=== PATIENT | male | born 1930 | race Caucasian/White ===

== ENCOUNTER 2016-10-05 10:50 | Observation (INO) | payer MEDICARE ==
--- NOTE | 2016-10-05 11:19 | C.PDOC ---
History Of Present Illness 85 y/o male, with history of open heart surgery and 7 stents, presents to ED with c/o acute onset left sided chest pain, described as pressure, radiating down left arm, that started this morning. Patient also reports some associated shortness of breath with exertion. Notes he took aspirin 325mg x 2 this morning. Denies fever, chills, nausea, vomiting, or other associated symptoms. 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 Time Seen by Provider: 10/05/16 10:53 Chief Complaint (Nursing): Chest Pain History Per: Patient History/Exam Limitations: no limitations Onset/Duration Of Symptoms: Hrs Current Symptoms Are (Timing): Still Present Quality: Pressure Associated Symptoms: Other (SOB) Recent travel outside of the [place]: No Past Medical History Reviewed: Historical Data, Nursing Documentation, Vital Signs Vital Signs: Last Vital Signs Temp 98.8 F 10/05/16 10:55 Pulse 87 10/05/16 11:46 Resp 20 10/05/16 10:55 BP 106/60 10/05/16 11:46 Pulse Ox 98 10/05/16 10:55 - Medical History PMH: HTN Family History: States: Unknown Family Hx - Social History Hx Tobacco Use: No Hx Alcohol Use: No Hx Substance Use: No - Immunization History Hx Influenza Vaccination: Yes Hx Pneumococcal Vaccination: Yes Review Of Systems Except As Marked, All Systems Reviewed And Found Negative. Constitutional: Negative for: Fever, Chills ENT: Negative for: Ear Pain Cardiovascular: Positive for: Chest Pain. Negative for: Palpitations Respiratory: Positive for: SOB with Excertion. Negative for: Cough, Wheezing Gastrointestinal: Negative for: Nausea, Vomiting Genitourinary: Negative for: Dysuria Skin: Negative for: Rash Neurological: Negative for: Weakness, Numbness, Seizures, Altered Mental Status , Headache, Dizziness Physical Exam - Physical Exam Appears: Well, Non-toxic, No Acute Distress Skin: Normal Color, Warm, Dry Head: Atraumatic, Normacephalic Eye(s): bilateral: Normal Inspection, PERRL, EOMI Oral Mucosa: Moist Neck: Supple Chest: Symmetrical Cardiovascular: Rhythm Regular Respiratory: Normal Breath Sounds, No Accessory Muscle Use, No Rales, No Rhonchi , No Wheezing Gastrointestinal/Abdominal: Soft, No Tenderness, No Guarding, No Rebound Back: Normal Inspection Extremity: Normal ROM, No Pedal Edema, No Calf Tenderness, Capillary Refill (< 2 sec.) Neurological/Psych: Oriented x3, Normal Speech, Normal Cognition ED Course And Treatment - Laboratory Results Result Diagrams: 10/05/16 11:45 10/05/16 11:45 Medical Decision Making Medical Decision Making: EKG shows NSR at 75bpm with normal intervals and no ST changes. Cxray shows biapical thickening and cardiomegaly. Trop and bnp negative. Spoke to Jamir and will transfer to tele observation due to known CAD and chest pain with no cardiac follow-up. y Disposition - Disposition Disposition: HOSPITALIZED Disposition Time: 11:02 Condition: FAIR - Clinical Impression Clinical Impression: Chest pain - Scribe Statement The provider has reviewed the documentation as recorded by the Emma James Provider Attestation: All medical record entries made by the Emma were at my direction and personally dictated by me. I have reviewed the chart and agree that the record accurately reflects my personal performance of the history, physical exam, medical decision making, and the department course for this patient. I have also personally directed, reviewed, and agree with the discharge instructions and disposition.
[2016-10-05 11:48] LABS: BASO % 0.4 % (0.0-2.0); EOS # 0.4 K/uL (0.0-0.7); EOS % 5.3 % (0.0-4.0); HEMATOCRIT 37.2 % (35.0-51.0); LYMPH # 1.9 K/uL (1.0-4.3); LYMPH % 27.9 % (20.0-40.0); MEAN CELL VOLUME 86.5 fL (80.0-94.0); MEAN CORPUSCULAR HEMOGLOBIN 29.2 pg (27.0-31.0); MEAN CORPUSCULAR HGB CONC 33.7 g/dL (33.0-37.0); MEAN PLATELET VOLUME 8.2 fL (7.2-11.7); MONO # 0.5 K/uL (0.0-0.8); MONO % 7.7 % (0.0-10.0); RED CELL DISTRIBUTION WIDTH 14.6 % (11.5-14.5); WHITE BLOOD COUNT 6.7 K/uL (4.8-10.8)
[2016-10-05 11:57] LABS: CHLORIDE 100 mmol/L (98-107); SODIUM 144 mmol/L (132-148)
[2016-10-05 11:58] LABS: POTASSIUM 3.6 mmol/L (3.6-5.2)
[2016-10-05 12:00] LABS: ALB/GLOB RATIO 1.3 (1.0-2.1); ALKALINE PHOSPHATASE 74 U/L (38-126); ALT/SGPT 36 U/L (21-72); AST/SGOT 27 U/L (17-59); BILIRUBIN,TOTAL 0.7 mg/dL (0.2-1.3); BLOOD UREA NITROGEN 21 mg/dL (9-20); CALCIUM 8.7 mg/dl (8.6-10.4); CARBON DIOXIDE 28 mmol/L (22-30); GFR AFRICAN-AMERICAN > 60; GLUCOSE,RANDOM 102 mg/dL (75-110)
--- NOTE | 2016-10-05 12:14 | RAD ---
HISTORY: chest pain COMPARISON: Chest x-ray performed 08/04/14 TECHNIQUE: Chest, one view. FINDINGS: LUNGS: Mild biapical pleural thickening. No focal consolidation. Please note that chest x-ray has limited sensitivity for the detection of pulmonary masses. PLEURA: No significant pleural effusion identified. No definite pneumothorax. CARDIOVASCULAR: Median sternotomy wires. Cardiomegaly. Ectatic aorta containing atherosclerotic calcifications. OSSEOUS STRUCTURES: Degenerative changes of the spine and shoulders. VISUALIZED UPPER ABDOMEN: Unremarkable. OTHER FINDINGS: None. IMPRESSION: Cardiomegaly. Biapical pleural thickening.
--- NOTE | 2016-10-05 17:23 | CP.PCM.HP ---
History of Present Illness - History of Present Illness History of Present Illness: 85 years old male ot withpmh of HTN, CAD x 7 stents, sp CABG presetned to ED woth compliants of sudden onsety left sided pressure like chest pain since today morning. pain moves down to left arm also c/o sob with exertion. pt took 2 tabs of aspirin 325mg without relief. no fever, nausea, voiting no diarrhes, abd pain, urinary symptoms. no leg swelling or palpitation Present on Admission - Present on Admission Any Indicators Present on Admission: No Past Patient History - Infectious Disease Hx of Infectious Diseases: None - Past Social History Smoking Status: Never Smoked - CARDIAC Hx Hypertension: Yes - GASTROINTESTINAL Hx Gastrointestinal Disorders: Yes Other/Comment: Intestinal Obstruction, Perforation, Peritonitis - PSYCHIATRIC Hx Substance Use: No - SURGICAL HISTORY Hx Surgeries: Yes Hx Coronary Artery Bypass Graft: Yes (x4) Hx Coronary Stent: Yes (x7) Other/Comment: Colon Resection. Meds Allergies/Adverse Reactions: Allergies Allergy/AdvReac Type Severity Reaction Status Date / Time Penicillins Allergy RASH Verified 10/05/16 11:14 Physical Exam - Constitutional Appears: Well - Head Exam Head Exam: ATRAUMATIC, NORMAL INSPECTION, NORMOCEPHALIC - Eye Exam Eye Exam: EOMI, Normal appearance, PERRL Pupil Exam: NORMAL ACCOMODATION, PERRL - ENT Exam ENT Exam: Mucous Membranes Moist, Normal Exam - Neck Exam Neck exam: Positive for: Normal Inspection - Respiratory Exam Respiratory Exam: Decreased Breath Sounds - Cardiovascular Exam Cardiovascular Exam: REGULAR RHYTHM, +S1, +S2 - GI/Abdominal Exam GI & Abdominal Exam: Diminished Bowel Sounds, Soft - Rectal Exam Rectal Exam: Deferred Results - Vital Signs Recent Vital Signs: Last Vital Signs Temp 97.5 F L 10/05/16 16:37 Pulse 68 10/05/16 16:37 Resp 20 10/05/16 16:37 BP 158/69 H 10/05/16 16:37 Pulse Ox 96 10/05/16 16:37 - Labs Result Diagrams: 10/05/16 11:45 10/05/16 11:45 Assessment & Plan (1) Chest pain Status: Acute (2) Hypertension Status: Acute - Assessment and Plan (Free Text) Plan: ekg -nsr labbs and meds reviewed cxr noted trop neg telemetry cardio consult aspirin coozar crstor vitals monitoring labs next am
--- NOTE | 2016-10-06 10:47 | CP.PCM.PN ---
Subjective - Date & Time of Evaluation Date of Evaluation: 10/06/16 Time of Evaluation: 12:00 - Subjective Subjective: clinically same Objective - Vital Signs/Intake and Output Vital Signs (last 24 hours): Temp Pulse Resp BP Pulse Ox 97.5 F L 82 18 158/69 H 96 10/05/16 16:37 10/06/16 04:00 10/05/16 16:41 10/05/16 16:37 10/05/16 16:37 - Medications Medications: Current Medications Aspirin (Aspirin) 325 mg PO DAILY [facility] Last Admin: 10/06/16 10:01 Dose: 325 mg Heparin Sodium (Porcine) (Heparin) 5,000 units SC Q12 [facility] Losartan Potassium (Cozaar) 50 mg PO DAILY [facility] Last Admin: 10/06/16 10:01 Dose: 50 mg Rosuvastatin Calcium (Crestor) 10 mg PO HS [facility] Last Admin: 10/05/16 22:10 Dose: 10 mg - Labs Labs: PT 11.2 SECONDS (9.7-12.2) 10/05/16 11:45 INR 1.0 10/05/16 11:45 APTT 33 SECONDS (21-34) 10/05/16 11:45 - Constitutional Appears: Well - Head Exam Head Exam: ATRAUMATIC, NORMAL INSPECTION, NORMOCEPHALIC - Eye Exam Eye Exam: EOMI, Normal appearance, PERRL Pupil Exam: NORMAL ACCOMODATION, PERRL - ENT Exam ENT Exam: Mucous Membranes Moist, Normal Exam - Neck Exam Neck Exam: Full ROM, Normal Inspection. absent: Lymphadenopathy - Respiratory Exam Respiratory Exam: Decreased Breath Sounds - Cardiovascular Exam Cardiovascular Exam: REGULAR RHYTHM, +S1, +S2 - GI/Abdominal Exam GI & Abdominal Exam: Soft, Diminished Bowel Sounds - Rectal Exam Rectal Exam: Deferred Assessment and Plan (1) Chest pain Status: Acute (2) Hypertension Status: Acute - Assessment and Plan (Free Text) Plan: pt feeling better chest pain improved td same asp cozaar heparin crestor stress test echo cardip on board
--- NOTE | 2016-10-06 22:13 | CP.PCM.CON ---
History of Present Illness - History of Present Illness History of Present Illness: 85 Male with Hx of CAD s/p CABG, multiple stents, HTN admitted for Chest pain Patient chest pain is exertional and relieves with rest and NTG Associated with dyspnea and diaphoresis Review of Systems - Cardiovascular Cardiovascular: Chest Pain, Chest Pain with Activity, Dyspnea on Exertion - Respiratory Respiratory: Dyspnea - Gastrointestinal Gastrointestinal: absent: Abdominal Pain - Musculoskeletal Musculoskeletal: absent: Abnormal Gait - Neurological Neurological: absent: Abnormal Gait Past Patient History - Infectious Disease Hx of Infectious Diseases: None - Past Medical History & Family History Past Medical History?: Yes - Past Social History Smoking Status: Never Smoked - CARDIAC Hx Hypertension: Yes - MUSCULOSKELETAL/RHEUMATOLOGICAL Hx Falls: No - GASTROINTESTINAL Hx Gastrointestinal Disorders: Yes Other/Comment: Intestinal Obstruction, Perforation, Peritonitis - PSYCHIATRIC Hx Substance Use: No - SURGICAL HISTORY Hx Surgeries: Yes Hx Coronary Artery Bypass Graft: Yes (x4) Hx Coronary Stent: Yes (x7) Other/Comment: Colon Resection. - ANESTHESIA Hx Anesthesia: Yes Hx Anesthesia Reactions: No Hx Malignant Hyperthermia: No Has any member of the family had a problem w/ anesthesia?: No Meds Allergies/Adverse Reactions: Allergies Allergy/AdvReac Type Severity Reaction Status Date / Time Penicillins Allergy RASH Verified 10/05/16 11:14 - Medications Medications: Current Medications Aspirin (Aspirin) 325 mg PO DAILY [facility] Last Admin: 10/06/16 10:01 Dose: 325 mg Heparin Sodium (Porcine) (Heparin) 5,000 units SC Q12 [facility] Last Admin: 10/06/16 10:55 Dose: 5,000 units Losartan Potassium (Cozaar) 50 mg PO DAILY [facility] Last Admin: 10/06/16 10:01 Dose: 50 mg Rosuvastatin Calcium (Crestor) 10 mg PO HS [facility] Last Admin: 10/06/16 21:39 Dose: 10 mg Physical Exam - Head Exam Head Exam: ATRAUMATIC, NORMAL INSPECTION - Eye Exam Eye Exam: EOMI, Normal appearance, PERRL Pupil Exam: NORMAL ACCOMODATION - ENT Exam ENT Exam: Mucous Membranes Moist, Normal Exam - Neck Exam Neck exam: Positive for: Normal Inspection - Respiratory Exam Respiratory Exam: Clear to Auscultation Bilateral, NORMAL BREATHING PATTERN - Cardiovascular Exam Cardiovascular Exam: REGULAR RHYTHM, +S1, +S2 - GI/Abdominal Exam GI & Abdominal Exam: Normal Bowel Sounds, Soft - Neurological Exam Neurological exam: Alert, CN II-XII Intact, Oriented x3 - Psychiatric Exam Psychiatric exam: Normal Mood - Skin Skin Exam: Warm Results - Vital Signs Recent Vital Signs: Last Vital Signs Temp 98.0 F 10/06/16 16:00 Pulse 69 10/06/16 16:00 Resp 16 10/06/16 16:00 BP 166/74 H 10/06/16 16:00 Pulse Ox 95 10/06/16 16:00 - Labs Result Diagrams: 10/05/16 11:45 10/05/16 11:45 Assessment & Plan - Assessment and Plan (Free Text) Assessment: 1. Chest pain and dyspnea with exertion 2. CAD s/p CABG and seven stents 3. HTN 4. Hyperlipdemia Recommend stress test and ECHo Continue current meds
[2016-10-07 00:49] VITALS: RESP 20
[2016-10-07] MEDS ORDERED: Aminophylline 25 mg/ml Inj ONE (08:01)
[2016-10-07 10:10] VITALS: BP 154/75; PULSE 73; TEMP 98; O2SAT 96
--- NOTE | 2016-10-07 13:16 | CP.PCM.PN ---
Subjective - Date & Time of Evaluation Date of Evaluation: 10/07/16 Time of Evaluation: 10:20 - Subjective Subjective: clinically same Objective - Vital Signs/Intake and Output Vital Signs (last 24 hours): Temp Pulse Resp BP Pulse Ox 98 F 73 20 154/75 H 96 10/07/16 10:09 10/07/16 10:09 10/07/16 10:09 10/07/16 10:09 10/07/16 10:09 - Medications Medications: Current Medications Aspirin (Aspirin) 325 mg PO DAILY [facility] Last Admin: 10/07/16 10:43 Dose: 325 mg Heparin Sodium (Porcine) (Heparin) 5,000 units SC Q12 [facility] Last Admin: 10/07/16 10:47 Dose: 5,000 units Losartan Potassium (Cozaar) 50 mg PO DAILY [facility] Last Admin: 10/07/16 10:43 Dose: 50 mg Rosuvastatin Calcium (Crestor) 10 mg PO HS [facility] Last Admin: 10/06/16 21:39 Dose: 10 mg - Labs Labs: PT 11.2 SECONDS (9.7-12.2) 10/05/16 11:45 INR 1.0 10/05/16 11:45 APTT 33 SECONDS (21-34) 10/05/16 11:45 - Constitutional Appears: Well - Head Exam Head Exam: ATRAUMATIC, NORMAL INSPECTION, NORMOCEPHALIC - Eye Exam Eye Exam: EOMI, Normal appearance, PERRL Pupil Exam: NORMAL ACCOMODATION, PERRL - ENT Exam ENT Exam: Mucous Membranes Moist, Normal Exam - Neck Exam Neck Exam: Full ROM, Normal Inspection. absent: Lymphadenopathy - Respiratory Exam Respiratory Exam: Decreased Breath Sounds - Cardiovascular Exam Cardiovascular Exam: REGULAR RHYTHM, +S1, +S2 - GI/Abdominal Exam GI & Abdominal Exam: Soft, Diminished Bowel Sounds - Rectal Exam Rectal Exam: Deferred Assessment and Plan (1) Chest pain Status: Acute (2) Hypertension Status: Acute - Assessment and Plan (Free Text) Plan: pt feeling better no acute event overnight no chest pains plan discharge today fup with dr mancera as advised td home meds as advised return to ed if symptoms recur
--- NOTE | 2016-10-07 14:04 | CARD ---
APPROVED REPORT Protocol: PHARMACOLOGICAL STRESS Test Type: LEXISCAN Test Indications: CHEST PAIN Medications: LIST SCAN Medical History: CHEST PAIN Target HR: 135 bpm Resting ECG: NSR Resting Heart Rate: 102 bpm Resting Blood Pressure: 170/80mmHg submaximum (85%): 115 bpm TEST SUMMARY [id number]/80.0. INFUSIONDOSE 100:300.00.01.096/.0. [id number]/70.0. PROCEDURE Pharmacologic stress testing was performed using 0.4mg per 5ml of regadenoson given intravenously over 7-10 seconds. POST EXERCISE Reason for Termination: LEXISCAN PROTOCOL Target HR: No Max HR: 96 bpm 82% of Maximum Predicted HR: 135 bpm Exercise duration: 00:30 min:sec, 0 Stage Exercise capacity: 1.0METs Max Blood Pressure: 170/80mmHg Chest Pain: Yes, Angina index: 0 Arrhythmia: Yes, ST Change: Yes, Deviation: 0 mm INTERPRETATION Stress EKG Conclusion: LEXISCAN COMPLETED NUCLEAR PENDING EXAM: Myocardial Perfusion STRESS/REST Imaging Protocol The imaging protocol used to acquire images was Stress Tc-99m/rest Tc-99m 1 day Stress Spect myocardial perfusion imaging was performed in supine position 45 minutes following the injection of 13.2 mCi of Tc-99 Myoview. Gated Rest Spect was performed 55 minutes after intravenous 32.0 mCi Tc-99 Myoview injection. The images were gated to evaluate regional wall motion and calculate ventricular ejection fraction.Images were reconstructed using backfilter projection method in short horizontal and verticle long axis. Spect slices were generated. RESTING DATA EDV57.71ldGW8.50L/min ESV12.00mlMyocardial Xvfi224.00g Av. Heart Rate77.00bpm EF79.00% STRESS DATA EDV64.79ttNV9.80L/min ESV13.00mlMyocardial Tivn187.00g EF80.00% Regional WT score at stress:1.00 Regional WM score at stress:0.00 Summed WT score at stress:15.00 Av. Heart Rate74.00bpmSummed WM score at stress:1.00 LV Perf. Quant 17 Seg. SSS1.00 17 Seg. SRS1.00 17 Seg. SDS0.00 Stress Defect Extent (% LAD)0.00Rest Defect Extent (% LAD)0.00Rev. Defect Extent (% LAD)0.00 Stress Defect Extent (% LCX)7.50Rest Defect Extent (% LCX)7.50Rev. Defect Extent (% LCX)1.30 Stress Defect Extent (% RCA)0.00Rest Defect Extent (% RCA)0.00Rev. Defect Extent (% RCA)0.00 Stress Defect Extent (% BERNARDA)1.30Rest Defect Extent (% BERNARDA)1.30Rev. Defect Extent (% BERNARDA)0.20 Other Information Quality:Good Overall Exercise Capacity: Good IMPRESSION Normal Myocardial Perfusion exercise stress study Global LV Function: Normal Stress Test Summary: Normal LV Perfusion Summary: Normal Metabolism/Perfusion There are no defects. Conclusion 1. The stress and resting images show normal perfusion.
--- NOTE | 2016-10-07 17:42 | CP.PCM.PN ---
Subjective - Date & Time of Evaluation Date of Evaluation: 10/07/16 Time of Evaluation: 11:00 - Subjective Subjective: Alert, awake, NAD, no chest pains. Objective - Vital Signs/Intake and Output Vital Signs (last 24 hours): Temp Pulse Resp BP Pulse Ox 98 F 73 20 154/75 H 96 10/07/16 10:09 10/07/16 10:09 10/07/16 10:09 10/07/16 10:09 10/07/16 10:09 Intake and Output: 10/07/16 10/07/16 06:59 18:59 Intake Total 480 Balance 480 - Labs Labs: PT 11.2 SECONDS (9.7-12.2) 10/05/16 11:45 INR 1.0 10/05/16 11:45 APTT 33 SECONDS (21-34) 10/05/16 11:45 Assessment and Plan - Assessment and Plan (Free Text) Assessment: is seen and examined. No sob or chest pains. Had echo and stress test done today , cleared by DR Moreno. D/W DR Radha Noble, discharged home, advised to follow up with PMD in 1 week.
--- NOTE | 2016-10-08 07:42 | CARD ---
APPROVED REPORT EXAM: Two-dimensional and M-mode echocardiogram with Doppler and color Doppler. Other Information Quality : Technically LimitedRhythm : NSR INDICATION CAD Chest Pain Surgery/Intervention CABG: RISK FACTORS Hypertension M-Mode DIMENSIONS RVDd0.98 (2.1-3.2cm)Left Atrium (MM)3.75 (2.5-4.0cm) IVSd1.09 (0.7-1.1cm)Aortic Root3.01 (2.2-3.7cm) LVDd5.04 (4.0-5.6cm)Aortic Cusp Exc.1.41 (1.5-2.0cm) PWd1.09 (0.7-1.1cm)FS (%) 19 % LVDs4.06 (2.0-3.8cm)LVEF (%)40 (>50%) Aortic Valve AoV Peak Fpjtggho244.4cm/Luisa Peak GR.5mmHg Mitral Valve MV E Husyrfpa98.4cm/sMV A Lnsujggj690.0cm/sE/A ratio0.6 TDI E/Lateral E'0.0E/Medial E'0.0 Tricuspid Valve TR Peak Fedvpunr554td/sTR Peak Gr.36joBoLQIT43yhFt LEFT VENTRICLE The left ventricle is normal size. There is normal left ventricular wall thickness. The left ventricular function is normal. The left ventricular ejection fraction is within the normal range. The Ejection Fraction is 50-55%. No regional wall motion abnormalities noted. The left ventricular diastolic function is normal. No left ventricle thrombus noted on this study. There is no ventricular septal defect visualized. There is no left ventricular aneurysm. There is no mass noted in the left ventricle. RIGHT VENTRICLE The right ventricle is normal size. There is normal right ventricular wall thickness. The right ventricular systolic function is normal. ATRIA The left atrium size is normal. The right atrium size is normal. The interatrial septum is intact with no evidence for an atrial septal defect. AORTIC VALVE The aortic valve is normal in structure and function. No aortic regurgitation is present. There is no aortic valvular stenosis. There is no aortic valvular vegetation. MITRAL VALVE The mitral valve is normal in structure and function. There is no evidence of mitral valve prolapse. There is no mitral valve stenosis. There is no mitral valve regurgitation noted. TRICUSPID VALVE The tricuspid valve is normal in structure and function. There is mild tricuspid regurgitation. Right ventricular systolic pressure is estimated at 30-40 mmHg. There is mild pulmonary hypertension. There is no tricuspid valve prolapse or vegetation. There is no tricuspid valve stenosis. PULMONIC VALVE The pulmonary valve is normal in structure and function. There is no pulmonic valvular regurgitation. There is no pulmonic valvular stenosis. GREAT VESSELS The aortic root is normal in size. The ascending aorta is normal in size. The pulmonary artery is normal. The IVC is normal in size and collapses >50% with inspiration. PERICARDIAL EFFUSION The pericardium appears normal. There is no pleural effusion. <Conclusion> The left ventricle is normal size. The left ventricular ejection fraction is within the normal range. The Ejection Fraction is 50-55%. The left atrium size is normal.
--- NOTE | 2016-10-08 13:13 | CARD ---
APPROVED REPORT EKG Measurement Heart [id number] OK [id number] <Conclusion> Normal sinus rhythm Normal ECG
== END 2016-10-07 16:52 | disposition home or self-care (01) ==
LOC: C.ER 10:50 → C.9E 12:22 → C.5T 15:04
PROVIDERS: ADMIT Internal Medicine Nephrology; ATTEND Internal Medicine Nephrology
DX: I25.10 Atherosclerotic heart disease of native coronary artery without angina pectoris (principal); I51.7 Cardiomegaly; Z95.1 Presence of aortocoronary bypass graft; I10 Essential (primary) hypertension
CPT/HCPCS: 36415; 71010; 78452; 80053; 82550; 82553; 83880; 84484; 85025; 85610; 85730; 93005; 93017; 93306; 97161; 99285; A9502; G0378; G8978; G8979; G8980; J1644; J2785

== ENCOUNTER 2016-11-26 13:32 | Inpatient (IN) | payer MEDICARE ==
[2016-11-26 13:34] VITALS: BMI 31.3
[2016-11-26] MEDS ORDERED: Nitroglycerin 2% Ointment Foilpak UD TOP STA (14:21)
[2016-11-26 14:26] LABS: BASO % 0.5 % (0.0-2.0); EOS # 0.2 K/uL (0.0-0.7); EOS % 3.4 % (0.0-4.0); HEMATOCRIT 36.7 % (35.0-51.0); LYMPH # 1.5 K/uL (1.0-4.3); MEAN CELL VOLUME 87.3 fL (80.0-94.0); MEAN CORPUSCULAR HEMOGLOBIN 30.1 pg (27.0-31.0); MEAN CORPUSCULAR HGB CONC 34.4 g/dL (33.0-37.0); MEAN PLATELET VOLUME 8.6 fL (7.2-11.7); MONO # 0.4 K/uL (0.0-0.8); MONO % 6.6 % (0.0-10.0); RED CELL DISTRIBUTION WIDTH 14.7 % (11.5-14.5); WHITE BLOOD COUNT 6.7 K/uL (4.8-10.8)
[2016-11-26 14:41] LABS: ALB/GLOB RATIO 1.3 (1.0-2.1); ALKALINE PHOSPHATASE 66 U/L (38-126); ALT/SGPT 34 U/L (21-72); AST/SGOT 28 U/L (17-59); BILIRUBIN,TOTAL 0.4 mg/dL (0.2-1.3); BLOOD UREA NITROGEN 20 mg/dL (9-20); CALCIUM 9.1 mg/dl (8.6-10.4); CARBON DIOXIDE 27 mmol/L (22-30); CHLORIDE 101 mmol/L (98-107); GFR AFRICAN-AMERICAN > 60; GLUCOSE,RANDOM 116 mg/dL (75-110); POTASSIUM 3.8 mmol/L (3.6-5.2); SODIUM 141 mmol/L (132-148)
--- NOTE | 2016-11-26 14:46 | RAD ---
PROCEDURE: CHEST RADIOGRAPH, 1 VIEW. Portable study 14:15. HISTORY: chest pain COMPARISON: None available. FINDINGS: LUNGS: Clear. PLEURA: 10/05/2016. CARDIOVASCULAR: No radiographic findings to suggest acute or significant cardiovascular disease. Incidental Finding(s): Postoperative changes related to sternotomy. OSSEOUS STRUCTURES: No significant abnormalities. VISUALIZED UPPER ABDOMEN: Normal. OTHER FINDINGS: None. IMPRESSION: No active disease. No acute/significant interval changes.
[2016-11-26] MEDS ORDERED: Nitroglycerin 50mg in D5W 50 MG/250 ML BOTTLE IV ONE ×2 (15:09→15:24)
[2016-11-26] MEDS ORDERED: Heparin25000 units/250ml 1/2NS 25,000 UNITS/250 ML BAG IV ONE ×2 (15:09→16:00)
--- NOTE | 2016-11-26 15:18 | C.PDOC ---
Time Seen by Provider: 11/26/16 14:01 Chief Complaint (Nursing): Chest Pain History Per: Patient, EMS Onset/Duration Of Symptoms: Hrs (4) Current Symptoms Are (Timing): Still Present Severity: Moderate Quality: "Pain" Associated Symptoms: denies: Diaphoresis, Syncope Modifying Factors: Other Indicated Below Nitro Therapy Administered: 1, Per EMS, Partial Relief Additional History Per: Prior Records Past Medical History Reviewed: Historical Data, Nursing Documentation, Vital Signs Vital Signs: Last Vital Signs Temp 98.6 F 11/26/16 13:35 Pulse 63 11/26/16 15:36 Resp 18 11/26/16 15:36 BP 130/58 L 11/26/16 15:36 Pulse Ox 100 11/26/16 15:36 - Medical History PMH: HTN Surgical History: CABG (x4), Coronary Stent (x7) Family History: States: Unknown Family Hx - Social History Hx Tobacco Use: No Hx Alcohol Use: No Hx Substance Use: No - Immunization History Hx Tetanus Toxoid Vaccination: No Hx Influenza Vaccination: Yes Hx Pneumococcal Vaccination: Yes Review Of Systems Except As Marked, All Systems Reviewed And Found Negative. Constitutional: Negative for: Fever, Weakness Cardiovascular: Positive for: Chest Pain Respiratory: Negative for: Hemoptysis Gastrointestinal: Negative for: Vomiting, Abdominal Pain Musculoskeletal: Negative for: Neck Pain Neurological: Positive for: Headache (after Nitroglycerine). Negative for: Weakness, Numbness Physical Exam - Physical Exam Appears: No Acute Distress Skin: Normal Color, Warm, Dry Head: Atraumatic, Normacephalic Eye(s): bilateral: PERRL, EOMI Neck: Normal ROM, Supple Cardiovascular: Rhythm Regular Respiratory: Normal Breath Sounds, No Accessory Muscle Use Gastrointestinal/Abdominal: Soft, No Tenderness Back: No CVA Tenderness Extremity: Normal ROM Neurological/Psych: Oriented x3, Normal Speech, Normal Cognition, Normal Motor, Normal Sensation ED Course And Treatment - Laboratory Results Result Diagrams: 11/26/16 14:20 11/26/16 14:20 Lab Interpretation: Abnormal Interpretation Of Abnormal: Positive Troponin level ECG: Interpreted By Me, Viewed By Me ECG Rhythm: Sinus Rhythm, 1st Degree HB, Nonspecific Changes Rate From EC O2 Sat by Pulse Oximetry: 98 Pulse Ox Interpretation: Normal - Radiology CXR: Viewed By Me, Read By Radiologist CXR Interpretation: Yes: No Acute Disease Progress Note: Dr. Franklin accepted pt to ICU. - Physician Consult Information Physician Contacted: Florencio Moreno (Cardiology) Outcome Of Conversation: He was pt given 300mg of Plavix and started on Heparin and Nitroglycerine drips and admitted to ICU. Progress - Interventions Interventions:: Observation, Oxygen - Medications Administered Oral: Aspirin (taken at home today) - Data Reviewed Data Reviewed: Lab, Diagnostic imaging, EKG, Old records - Patient Status Patient status: Partially improved - Critical Care Citical Care: Excluding Proc Time Critical Care Time: 60 minutes - Continuity of Care Discussed patient case with:: Patient, ED Nurse, On-call PMD-pt unassigned Discussed pt. case with human resources consultant/specialty: Cardiology, Pulmonary/Crit. Care - Patient Plan Patient Plan: Admission, ICU Disposition Discussed With DrNick: Darcy Noble Comment: He accepted pt on his service. Doctor Will See Patient In The: Hospital Counseled Patient/Family Regarding: Studies Performed, Diagnosis - Disposition Disposition: HOSPITALIZED Disposition Time: 16:00 Condition: SERIOUS - Clinical Impression Clinical Impression: NSTEMI (non-ST elevated myocardial infarction), Chest pain
--- NOTE | 2016-11-26 16:49 | CP.PCM.CON ---
History of Present Illness - History of Present Illness History of Present Illness: 85yo M. PMHx CAD s/p CABG, multiple stents, HTN. p/w NSTEMI with ongoing chest pain. Review of Systems - Review of Systems All systems: reviewed and no additional remarkable complaints except - Cardiovascular Cardiovascular: Chest Pain Past Patient History - Infectious Disease Hx of Infectious Diseases: None - Past Medical History & Family History Past Medical History?: Yes - Past Social History Smoking Status: Never Smoked - CARDIAC Hx Hypertension: Yes - MUSCULOSKELETAL/RHEUMATOLOGICAL Hx Falls: No - GASTROINTESTINAL Hx Gastrointestinal Disorders: Yes Other/Comment: Intestinal Obstruction, Perforation, Peritonitis - PSYCHIATRIC Hx Substance Use: No - SURGICAL HISTORY Hx Coronary Artery Bypass Graft: Yes (x4) Hx Coronary Stent: Yes (x7) - ANESTHESIA Hx Anesthesia: Yes Hx Anesthesia Reactions: No Hx Malignant Hyperthermia: No Meds Allergies/Adverse Reactions: Allergies Allergy/AdvReac Type Severity Reaction Status Date / Time morphine Allergy Verified 11/26/16 13:34 Penicillins Allergy RASH Verified 11/26/16 13:34 - Medications Medications: Current Medications Nitroglycerin/Dextrose (Nitroglycerin 50 Mg/250 Ml D5w) 50 mg in 250 mls @ 1.5 mls/hr IV .Q24H ONE; 5 MCG/MIN PRN Reason: Protocol Stop: 11/27/16 15:08 Last Admin: 11/26/16 15:36 Dose: 1.5 mls/hr Heparin Sodium/Sodium Chloride (Heparin 06906 Units/250ml 1/2 Normal Saline) 25 ,000 units in 250 mls @ 10.886 mls/hr IV .[id number] ONE; 12 UNITS/KG/HR PRN Reason: Protocol Stop: 11/27/16 14:57 Physical Exam - Head Exam Head Exam: ATRAUMATIC, NORMAL INSPECTION, NORMOCEPHALIC - Eye Exam Eye Exam: EOMI, Normal appearance, PERRL - ENT Exam ENT Exam: Mucous Membranes Moist, Normal Exam - Neck Exam Neck exam: Positive for: Normal Inspection - Respiratory Exam Respiratory Exam: Clear to Auscultation Bilateral, NORMAL BREATHING PATTERN - Cardiovascular Exam Cardiovascular Exam: REGULAR RHYTHM - GI/Abdominal Exam GI & Abdominal Exam: Normal Bowel Sounds, Soft. absent: Tenderness - Neurological Exam Neurological exam: Alert, CN II-XII Intact, Oriented x3, Reflexes Normal - Psychiatric Exam Psychiatric exam: Normal Affect, Normal Mood Results - Vital Signs Recent Vital Signs: Last Vital Signs Temp 98.6 F 11/26/16 13:35 Pulse 63 11/26/16 15:36 Resp 18 11/26/16 15:36 BP 130/58 L 11/26/16 15:36 Pulse Ox 98 11/26/16 16:27 - Labs Result Diagrams: 11/26/16 14:20 11/26/16 14:20 Assessment & Plan (1) NSTEMI (non-ST elevated myocardial infarction) Assessment and Plan: 85yo M. PMHx CAD s/p CABG, multiple stents, HTN. p/w NSTEMI with ongoing chest pain. Neuro: alert and oriented x 3 Pulm: no acute issues, breathing spontaneously on nasal canula oxygen. CV: NSTEMI with mild elevation of troponin's. continued chest pain, started on nitro drip. trend troponins. Hem: started on heparin gtt, plavix and ASA. Renal: no acute issues, urine output wnl, will monitor. Endo: no acute issues GI: cardiac diet ID: no acute issues DVT proph - heparin gtt GI proph - protonix Code status - full code Critical Care Time spent 35 minutes The documented time is cumulative and includes review of patient data/exams/labs /chart review and examination of the patient on rounds and throughout the day; time is exclusive of any procedures or teaching time. Status: Acute
[2016-11-26] MEDS ORDERED: Lactated Ringer's 1,000 ML IV SCH (17:15)
--- NOTE | 2016-11-26 18:41 | CP.PCM.HP ---
Past Patient History - Infectious Disease Hx of Infectious Diseases: None - Past Medical History & Family History Past Medical History?: Yes - Past Social History Smoking Status: Never Smoked - CARDIAC Hx Hypertension: Yes - HEENT Hx Cataracts: Yes - MUSCULOSKELETAL/RHEUMATOLOGICAL Hx Falls: No - GASTROINTESTINAL Hx Gastrointestinal Disorders: Yes Other/Comment: Intestinal Obstruction, Perforation, Peritonitis - PSYCHIATRIC Hx Substance Use: No - SURGICAL HISTORY Hx Coronary Artery Bypass Graft: Yes (x4) Hx Coronary Stent: Yes (x7) - ANESTHESIA Hx Anesthesia: Yes Hx Anesthesia Reactions: No Hx Malignant Hyperthermia: No Meds Allergies/Adverse Reactions: Allergies Allergy/AdvReac Type Severity Reaction Status Date / Time morphine Allergy Verified 11/26/16 13:34 Penicillins Allergy RASH Verified 11/26/16 13:34 Physical Exam - Constitutional Appears: Well - Head Exam Head Exam: ATRAUMATIC, NORMAL INSPECTION, NORMOCEPHALIC - Eye Exam Eye Exam: EOMI, Normal appearance, PERRL Pupil Exam: NORMAL ACCOMODATION, PERRL - ENT Exam ENT Exam: Mucous Membranes Moist, Normal Exam - Neck Exam Neck exam: Positive for: Normal Inspection - Respiratory Exam Respiratory Exam: Decreased Breath Sounds - Cardiovascular Exam Cardiovascular Exam: REGULAR RHYTHM, +S1, +S2 - GI/Abdominal Exam GI & Abdominal Exam: Diminished Bowel Sounds, Soft - Rectal Exam Rectal Exam: Deferred Results - Vital Signs Recent Vital Signs: Last Vital Signs Temp 98 F 11/26/16 17:08 Pulse 60 11/26/16 17:08 Resp 16 11/26/16 17:08 BP 139/48 L 11/26/16 17:08 Pulse Ox 100 11/26/16 17:08 - Labs Result Diagrams: 11/26/16 14:20 11/26/16 14:20
[2016-11-27 06:33] LABS: BASO % 0.4 % (0.0-2.0); EOS # 0.4 K/uL (0.0-0.7); EOS % 4.8 % (0.0-4.0); HEMATOCRIT 38.2 % (35.0-51.0); LYMPH # 1.4 K/uL (1.0-4.3); LYMPH % 16.1 % (20.0-40.0); MEAN CELL VOLUME 87.1 fL (80.0-94.0); MEAN CORPUSCULAR HEMOGLOBIN 29.7 pg (27.0-31.0); MEAN CORPUSCULAR HGB CONC 34.1 g/dL (33.0-37.0); MEAN PLATELET VOLUME 8.8 fL (7.2-11.7); MONO # 0.6 K/uL (0.0-0.8); MONO % 6.5 % (0.0-10.0); RED CELL DISTRIBUTION WIDTH 14.6 % (11.5-14.5); WHITE BLOOD COUNT 8.8 K/uL (4.8-10.8)
[2016-11-27 06:51] LABS: CHLORIDE 100 mmol/L (98-107); GLUCOSE,RANDOM 111 mg/dL (75-110); TOTAL PROTEIN 6.8 g/dL (6.3-8.3)
[2016-11-27 06:52] LABS: ALB/GLOB RATIO 1.3 (1.0-2.1); ALKALINE PHOSPHATASE 71 U/L (38-126); ALT/SGPT 44 U/L (21-72); AST/SGOT 94 U/L (17-59); BILIRUBIN,TOTAL 0.6 mg/dL (0.2-1.3); BLOOD UREA NITROGEN 14 mg/dL (9-20); CALCIUM 8.9 mg/dl (8.6-10.4); CARBON DIOXIDE 28 mmol/L (22-30); GFR AFRICAN-AMERICAN > 60; MAGNESIUM 1.9 mg/dL (1.6-2.3); PHOSPHOROUS 2.7 mg/dL (2.5-4.5); POTASSIUM 3.9 mmol/L (3.6-5.2); SODIUM 140 mmol/L (132-148)
--- NOTE | 2016-11-27 07:14 | CP.PCM.CON ---
History of Present Illness - History of Present Illness History of Present Illness: Chief Complaint (Nursing): Chest Pain History Per: Patient Onset/Duration Of Symptoms: Hrs (4) Current Symptoms Are (Timing): None Severity: Moderate Quality: "Pain" Associated Symptoms: denies: Diaphoresis, Syncope Modifying Factors: Other Indicated Below Additional History Per: Prior Records - Medical History PMH: HTN Surgical History: CABG (x4), Coronary Stent (x7) Family History: States: Unknown Family Hx - Social History Hx Tobacco Use: No Hx Alcohol Use: No Hx Substance Use: No - Immunization History Hx Tetanus Toxoid Vaccination: No Hx Influenza Vaccination: Yes Hx Pneumococcal Vaccination: Yes Review Of Systems Except As Marked, All Systems Reviewed And Found Negative. Constitutional: Negative for: Fever, Weakness Cardiovascular: Positive for: Chest Pain Respiratory: Negative for: Hemoptysis Gastrointestinal: Negative for: Vomiting, Abdominal Pain Musculoskeletal: Negative for: Neck Pain Neurological: Positive for: Headache (after Nitroglycerine). Negative for: Weakness, Numbness Physical Exam - Physical Exam Appears: No Acute Distress Skin: Normal Color, Warm, Dry Head: Atraumatic, Normacephalic Eye(s): bilateral: PERRL, EOMI Neck: Normal ROM, Supple Cardiovascular: Rhythm Regular Respiratory: Normal Breath Sounds, No Accessory Muscle Use Gastrointestinal/Abdominal: Soft, No Tenderness Back: No CVA Tenderness Extremity: Normal ROM Neurological/Psych: Oriented x3, Normal Speech, Normal Cognition, Normal Motor, Normal Sensation Past Patient History - Infectious Disease Hx of Infectious Diseases: None - Past Medical History & Family History Past Medical History?: Yes - Past Social History Smoking Status: Never Smoked - CARDIAC Hx Hypertension: Yes - HEENT Hx Cataracts: Yes - MUSCULOSKELETAL/RHEUMATOLOGICAL Hx Falls: No - GASTROINTESTINAL Hx Gastrointestinal Disorders: Yes Other/Comment: Intestinal Obstruction, Perforation, Peritonitis - PSYCHIATRIC Hx Substance Use: No - SURGICAL HISTORY Hx Coronary Artery Bypass Graft: Yes (x4) Hx Coronary Stent: Yes (x7) - ANESTHESIA Hx Anesthesia: Yes Hx Anesthesia Reactions: No Hx Malignant Hyperthermia: No Meds Home Medications: Home Medication List Medication Instructions Recorded Confirmed Type Aspirin [Aspirin Chewable] 81 mg PO DAILY #90 chew 12/01/16 Rx Clopidogrel [Plavix] 75 mg PO DAILY #90 tab 12/01/16 Rx Enoxaparin [Lovenox] 30 mg SC DAILY syr 12/01/16 Rx Famotidine [Pepcid] 20 mg PO BID tab 12/01/16 Rx Fluticasone Propionate [Flonase] 1 spr PONCHO DAILY PRN bottle 12/01/16 Rx Fluticasone Propionate [Flonase] 1 spr PONCHO Q4 PRN bottle 12/01/16 Rx Metoprolol Tartrate [Lopressor] 12.5 mg PO BID tab 12/01/16 Rx Rosuvastatin Calcium [Crestor] 20 mg PO HS tab 12/01/16 Rx Allergies/Adverse Reactions: Allergies Allergy/AdvReac Type Severity Reaction Status Date / Time morphine Allergy ANAPHYLAXIS Verified 11/30/16 12:29 Penicillins Allergy RASH Verified 11/30/16 12:29 - Medications Medications: Current Medications Aspirin (Aspirin Chewable) 81 mg PO DAILY [facility] Clopidogrel Bisulfate (Plavix) 75 mg PO DAILY [facility] Famotidine (Pepcid) 20 mg PO BID [facility] Nitroglycerin/Dextrose (Nitroglycerin 50 Mg/250 Ml D5w) 50 mg in 250 mls @ 1.5 mls/hr IV .Q24H ONE; 5 MCG/MIN PRN Reason: Protocol Stop: 11/27/16 15:08 Last Admin: 11/26/16 15:36 Dose: 1.5 mls/hr Heparin Sodium/Sodium Chloride (Heparin 69091 Units/250ml 1/2 Normal Saline) 25 ,000 units in 250 mls @ 10.886 mls/hr IV .[id number] ONE; 12 UNITS/KG/HR PRN Reason: Protocol Stop: 11/27/16 14:57 Last Titration: 11/26/16 23:45 Dose: 9 units/kg/hr, 8.165 mls/hr Lactated Ringer's (Lactated Ringer's) 1,000 mls @ 60 mls/hr IV .[id number] DIANNE Stop: 11/27/16 13:00 Last Admin: 11/26/16 19:32 Dose: 60 mls/hr Metoprolol Tartrate (Lopressor) 12.5 mg PO BID DIANNE Rosuvastatin Calcium (Crestor) 20 mg PO HS [facility] Results - Vital Signs Recent Vital Signs: Last Vital Signs Temp 98 F 11/27/16 04:00 Pulse 70 11/27/16 07:00 Resp 15 11/27/16 07:00 BP 117/62 11/27/16 06:30 Pulse Ox 97 11/27/16 07:00 - Labs Result Diagrams: 12/01/16 06:12 12/01/16 06:12 Labs: Laboratory Results - last 24 hr 11/26/16 11/26/16 11/27/16 22:10 22:10 06:25 WBC RBC Hgb Hct MCV MCH MCHC RDW Plt Count MPV Neut % (Auto) Lymph % (Auto) [place] % (Auto) Eos % (Auto) Baso % (Auto) Neut # Lymph # [place] # Eos # Baso # APTT 139 H* D Sodium 140 Potassium 3.9 Chloride 100 Carbon Dioxide 28 Anion Gap 16 BUN 14 Creatinine 0.9 Est GFR ( Amer) > 60 Est GFR (Non-Af Amer) > 60 Random Glucose 111 H Calcium 8.9 Phosphorus 2.7 Magnesium 1.9 Total Bilirubin 0.6 AST 94 H D ALT 44 Alkaline Phosphatase 71 Troponin I 9.3600 H* 22.7000 H* Total Protein 6.8 Albumin 3.8 Globulin 3.0 Albumin/Globulin Ratio 1.3 11/27/16 11/27/16 06:26 06:26 WBC 8.8 RBC 4.39 L Hgb 13.0 Hct 38.2 MCV 87.1 MCH 29.7 MCHC 34.1 RDW 14.6 H Plt Count 205 MPV 8.8 Neut % (Auto) 72.2 Lymph % (Auto) 16.1 L [place] % (Auto) 6.5 Eos % (Auto) 4.8 H Baso % (Auto) 0.4 Neut # 6.3 Lymph # 1.4 [place] # 0.6 Eos # 0.4 Baso # 0.0 APTT 59 H D Sodium Potassium Chloride Carbon Dioxide Anion Gap BUN Creatinine Est GFR ( Amer) Est GFR (Non-Af Amer) Random Glucose Calcium Phosphorus Magnesium Total Bilirubin AST ALT Alkaline Phosphatase Troponin I Total Protein Albumin Globulin Albumin/Globulin Ratio Assessment & Plan - Assessment and Plan (Free Text) Assessment: (1) NSTEMI (non-ST elevated myocardial infarction) Assessment and Plan: 85yo M. PMHx CAD s/p CABG, multiple stents, HTN. p/w NSTEMI Neuro: alert and oriented x 3 Pulm: no acute issues, breathing spontaneously on nasal canula oxygen. CV: NSTEMI with mild elevation of troponin's. continued chest pain, started on nitro drip. trend troponins. Hem: started on heparin gtt, plavix and ASA. Renal: no acute issues, urine output wnl, will monitor. Endo: no acute issues GI: cardiac diet ID: no acute issues DVT proph - heparin gtt GI proph - protonix Code status - full code
--- NOTE | 2016-11-27 13:02 | CP.CCUPN ---
CCU Subjective - Physician Review Events Since Last Encounter (Free Text): 11/27/16 12:30 85yo M. PMHx CAD s/p CABG, multiple stents, HTN. p/w NSTEMI with ongoing chest pain. Neuro: alert and oriented x 3 Pulm: no acute issues, breathing spontaneously on nasal canula oxygen. CV: NSTEMI On heparin drip, Troponins rising, hemodynamically stable. No further chest pain, stopping nitro drip.cardiology following-, possible cardiac cath on Tuesday. Hem: heparin gtt, plavix and ASA. Renal: no acute issues, urine output wnl, will monitor. Endo: no acute issues GI: cardiac diet ID: no acute issues DVT proph - heparin gtt GI proph - protonix Code status - full code Critical Care Time spent 35 minutes Multi-disciplinary rounds were performed with house staff, nursing, speech therapy, respiratory therapy, pharmacy and nutrition with integrated input from the primary team/attending and other consulting services. The documented time is cumulative and includes review of patient data/exams/labs/chart review and examination of the patient on rounds and throughout the day; time is exclusive of any procedures or teaching time. CCU Objective - Vital Signs / Intake & Output Vital Signs (Last 4 hours): Vital Signs Temp Pulse Resp BP Pulse Ox 11/27/16 11:42 98.1 F 11/27/16 11:31 70 17 151/68 H 11/27/16 10:30 79 18 123/62 11/27/16 10:00 86 21 11/27/16 09:30 82 16 115/62 11/27/16 08:31 65 14 142/71 99 Intake and Output (Last 8hrs): Intake & Output 11/26/16 11/27/16 11/27/16 22:59 06:59 14:59 Intake Total 437.7 544.2 880.5 Output Total 1050 1000 750 Balance -612.3 -455.8 130.5 Weight 170 lb Intake: IV 0 0 Intake, IV Amount 287.7 544.2 280.5 Left Hand 4.5 12.0 6.0 Right Distal Port Upper 43.2 52.2 34.5 arm Right Proximal Port Upper 240 480 240 arm Oral 150 600 Output: Urine 1050 1000 750 Urine, Voided 1050 1000 750 Other: # Voids Urine, Voided 1 # Bowel Movements 1 - Medications Active Medications: Active Medications Generic Name Dose Route Start Last Admin Trade Name Freq PRN Reason Stop Dose Admin Acetaminophen 650 mg 11/27/16 07:22 11/27/16 10:52 Tylenol 325mg Tab PO 650 mg Q6 PRN Administration Pain, Mild (1-3) Aspirin 81 mg 11/27/16 10:00 11/27/16 10:53 Aspirin Chewable PO 81 mg DAILY DIANNE Administration Clopidogrel Bisulfate 75 mg 11/27/16 10:00 11/27/16 10:54 Plavix PO 75 mg DAILY DIANNE Administration Famotidine 20 mg 11/27/16 10:00 11/27/16 10:54 Pepcid PO 20 mg BID DIANNE Administration Heparin Sodium/Sodium Chloride 25,000 units in 250 mls @ 6.94 mls/hr 11/27/16 12:19 Heparin 82755 Units/250ml 1/2 Normal Saline IV .Q24H PRN PROTOCOL Protocol 9 UNITS/KG/HR Metoprolol Tartrate 12.5 mg 11/27/16 10:00 11/27/16 10:54 Lopressor PO 12.5 mg BID DIANNE Administration Rosuvastatin Calcium 20 mg 11/27/16 08:00 11/27/16 07:45 Crestor PO 20 mg HS DIANNE Administration - Patient Studies Lab Studies: Lab Studies 11/27/16 11/27/16 11/27/16 Range/Units 11:48 06:26 06:26 WBC 8.8 (4.8-10.8) K/uL RBC 4.39 L (4.40-5.90) Mil/uL Hgb 13.0 (12.0-18.0) g/dL Hct 38.2 (35.0-51.0) % MCV 87.1 (80.0-94.0) fL MCH 29.7 (27.0-31.0) pg MCHC 34.1 (33.0-37.0) g/dL RDW 14.6 H (11.5-14.5) % Plt Count 205 (130-400) K/uL MPV 8.8 (7.2-11.7) fL Neut % (Auto) 72.2 (50.0-75.0) % Lymph % (Auto) 16.1 L (20.0-40.0) % [place] % (Auto) 6.5 (0.0-10.0) % Eos % (Auto) 4.8 H (0.0-4.0) % Baso % (Auto) 0.4 (0.0-2.0) % Neut # 6.3 (1.8-7.0) K/uL Lymph # 1.4 (1.0-4.3) K/uL [place] # 0.6 (0.0-0.8) K/uL Eos # 0.4 (0.0-0.7) K/uL Baso # 0.0 (0.0-0.2) K/uL APTT 52 H D 59 H D (21-34) SECONDS Sodium (132-148) mmol/L Potassium (3.6-5.2) mmol/L Chloride (98-107) mmol/L Carbon Dioxide (22-30) mmol/L Anion Gap (10-20) BUN (9-20) mg/dL Creatinine (0.8-1.5) MG/DL Est GFR ( Amer) Est GFR (Non-Af Amer) Random Glucose (75-110) mg/dL Calcium (8.6-10.4) mg/dl Phosphorus (2.5-4.5) mg/dL Magnesium (1.6-2.3) mg/dL Total Bilirubin (0.2-1.3) mg/dL AST (17-59) U/L ALT (21-72) U/L Alkaline Phosphatase (38-126) U/L Troponin I (0.00-0.120) ng/mL Total Protein (6.3-8.3) g/dL Albumin (3.5-5.0) g/dL Globulin (2.2-3.9) gm/dL Albumin/Globulin Ratio (1.0-2.1) 11/27/16 11/26/16 11/26/16 Range/Units 06:25 22:10 22:10 WBC (4.8-10.8) K/uL RBC (4.40-5.90) Mil/uL Hgb (12.0-18.0) g/dL Hct (35.0-51.0) % MCV (80.0-94.0) fL MCH (27.0-31.0) pg MCHC (33.0-37.0) g/dL RDW (11.5-14.5) % Plt Count (130-400) K/uL MPV (7.2-11.7) fL Neut % (Auto) (50.0-75.0) % Lymph % (Auto) (20.0-40.0) % [place] % (Auto) (0.0-10.0) % Eos % (Auto) (0.0-4.0) % Baso % (Auto) (0.0-2.0) % Neut # (1.8-7.0) K/uL Lymph # (1.0-4.3) K/uL [place] # (0.0-0.8) K/uL Eos # (0.0-0.7) K/uL Baso # (0.0-0.2) K/uL APTT 139 H* D (21-34) SECONDS Sodium 140 (132-148) mmol/L Potassium 3.9 (3.6-5.2) mmol/L Chloride 100 (98-107) mmol/L Carbon Dioxide 28 (22-30) mmol/L Anion Gap 16 (10-20) BUN 14 (9-20) mg/dL Creatinine 0.9 (0.8-1.5) MG/DL Est GFR ( Amer) > 60 Est GFR (Non-Af Amer) > 60 Random Glucose 111 H (75-110) mg/dL Calcium 8.9 (8.6-10.4) mg/dl Phosphorus 2.7 (2.5-4.5) mg/dL Magnesium 1.9 (1.6-2.3) mg/dL Total Bilirubin 0.6 (0.2-1.3) mg/dL AST 94 H D (17-59) U/L ALT 44 (21-72) U/L Alkaline Phosphatase 71 (38-126) U/L Troponin I 22.7000 H* 9.3600 H* (0.00-0.120) ng/mL Total Protein 6.8 (6.3-8.3) g/dL Albumin 3.8 (3.5-5.0) g/dL Globulin 3.0 (2.2-3.9) gm/dL Albumin/Globulin Ratio 1.3 (1.0-2.1) Laboratory Results - last 24 hr 11/26/16 11/26/16 11/27/16 22:10 22:10 06:25 WBC RBC Hgb Hct MCV MCH MCHC RDW Plt Count MPV Neut % (Auto) Lymph % (Auto) [place] % (Auto) Eos % (Auto) Baso % (Auto) Neut # Lymph # [place] # Eos # Baso # APTT 139 H* D Sodium 140 Potassium 3.9 Chloride 100 Carbon Dioxide 28 Anion Gap 16 BUN 14 Creatinine 0.9 Est GFR ( Amer) > 60 Est GFR (Non-Af Amer) > 60 Random Glucose 111 H Calcium 8.9 Phosphorus 2.7 Magnesium 1.9 Total Bilirubin 0.6 AST 94 H D ALT 44 Alkaline Phosphatase 71 Troponin I 9.3600 H* 22.7000 H* Total Protein 6.8 Albumin 3.8 Globulin 3.0 Albumin/Globulin Ratio 1.3 11/27/16 11/27/16 11/27/16 06:26 06:26 11:48 WBC 8.8 RBC 4.39 L Hgb 13.0 Hct 38.2 MCV 87.1 MCH 29.7 MCHC 34.1 RDW 14.6 H Plt Count 205 MPV 8.8 Neut % (Auto) 72.2 Lymph % (Auto) 16.1 L [place] % (Auto) 6.5 Eos % (Auto) 4.8 H Baso % (Auto) 0.4 Neut # 6.3 Lymph # 1.4 [place] # 0.6 Eos # 0.4 Baso # 0.0 APTT 59 H D 52 H D Sodium Potassium Chloride Carbon Dioxide Anion Gap BUN Creatinine Est GFR ( Amer) Est GFR (Non-Af Amer) Random Glucose Calcium Phosphorus Magnesium Total Bilirubin AST ALT Alkaline Phosphatase Troponin I Total Protein Albumin Globulin Albumin/Globulin Ratio Critical Care Progress Note - Nutrition Nutrition: Nutrition Category Date Time Status Heart Healthy Diet [DIET] Diets 11/26/16 Dinner Active Assessment/Plan (1) NSTEMI (non-ST elevated myocardial infarction) Current Visit: Yes Status: Acute
[2016-11-27] MEDS: Heparin25000 units/250ml 1/2NS 25,000 UNITS/250 ML BAG IV PRN (14:34)
--- NOTE | 2016-11-27 15:41 | CP.PCM.PN ---
Subjective - Date & Time of Evaluation Date of Evaluation: 11/27/16 Time of Evaluation: 14:00 - Subjective Subjective: clinically same Objective - Vital Signs/Intake and Output Vital Signs (last 24 hours): Temp Pulse Resp BP Pulse Ox 98.1 F 68 16 102/60 98 11/27/16 11:42 11/27/16 15:00 11/27/16 15:00 11/27/16 14:30 11/27/16 15:00 Intake and Output: 11/27/16 11/27/16 06:59 18:59 Intake Total 761.1 1148.1 Output Total 1650 1150 Balance -888.9 -1.9 - Medications Medications: Current Medications Acetaminophen (Tylenol 325mg Tab) 650 mg PO Q6 PRN PRN Reason: Pain, Mild (1-3) Last Admin: 11/27/16 10:52 Dose: 650 mg Aspirin (Aspirin Chewable) 81 mg PO DAILY [facility] Last Admin: 11/27/16 10:53 Dose: 81 mg Clopidogrel Bisulfate (Plavix) 75 mg PO DAILY [facility] Last Admin: 11/27/16 10:54 Dose: 75 mg Famotidine (Pepcid) 20 mg PO BID [facility] Last Admin: 11/27/16 10:54 Dose: 20 mg Heparin Sodium/Sodium Chloride (Heparin 74597 Units/250ml 1/2 Normal Saline) 25 ,000 units in 250 mls @ 6.94 mls/hr IV .Q24H PRN; Protocol; 9 UNITS/KG/HR PRN Reason: PROTOCOL Last Admin: 11/27/16 14:34 Dose: 9 units/kg/hr, 6.94 mls/hr Metoprolol Tartrate (Lopressor) 12.5 mg PO BID [facility] Last Admin: 11/27/16 10:54 Dose: 12.5 mg Rosuvastatin Calcium (Crestor) 20 mg PO HS [facility] Last Admin: 11/27/16 07:45 Dose: 20 mg - Labs Labs: 11/27/16 06:26 11/27/16 06:25 PT 11.7 SECONDS (9.7-12.2) 11/26/16 14:20 INR 1.0 11/26/16 14:20 APTT 52 SECONDS (21-34) H D 11/27/16 11:48 - Constitutional Appears: Well - Head Exam Head Exam: ATRAUMATIC, NORMAL INSPECTION, NORMOCEPHALIC - Eye Exam Eye Exam: EOMI, Normal appearance, PERRL Pupil Exam: NORMAL ACCOMODATION, PERRL - ENT Exam ENT Exam: Mucous Membranes Moist, Normal Exam - Neck Exam Neck Exam: Full ROM, Normal Inspection. absent: Lymphadenopathy - Respiratory Exam Respiratory Exam: Decreased Breath Sounds - Cardiovascular Exam Cardiovascular Exam: REGULAR RHYTHM, +S1, +S2 - GI/Abdominal Exam GI & Abdominal Exam: Soft, Diminished Bowel Sounds - Rectal Exam Rectal Exam: Deferred
--- NOTE | 2016-11-27 23:40 | CP.PCM.PN ---
Subjective - Date & Time of Evaluation Date of Evaluation: 11/27/16 Time of Evaluation: 17:30 - Subjective Subjective: Patient seen and evaluated Admitted with Non ST IN Last Troponin 22 Currently chest pain free On IV Heparin, B blockers, Statin, ASA and Plavix For cath Tuesday D/ Patient Objective - Vital Signs/Intake and Output Vital Signs (last 24 hours): Temp Pulse Resp BP Pulse Ox 98.1 F 65 13 137/68 96 11/27/16 20:00 11/27/16 23:00 11/27/16 23:00 11/27/16 22:31 11/27/16 23:00 Intake and Output: 11/27/16 11/28/16 18:59 06:59 Intake Total 1168.8 34.5 Output Total 1150 500 Balance 18.8 -465.5 - Medications Medications: Current Medications Acetaminophen (Tylenol 325mg Tab) 650 mg PO Q6 PRN PRN Reason: Pain, Mild (1-3) Last Admin: 11/27/16 10:52 Dose: 650 mg Aspirin (Aspirin Chewable) 81 mg PO DAILY [facility] Last Admin: 11/27/16 10:53 Dose: 81 mg Clopidogrel Bisulfate (Plavix) 75 mg PO DAILY [facility] Last Admin: 11/27/16 10:54 Dose: 75 mg Famotidine (Pepcid) 20 mg PO BID [facility] Last Admin: 11/27/16 19:03 Dose: 20 mg Heparin Sodium/Sodium Chloride (Heparin 45160 Units/250ml 1/2 Normal Saline) 25 ,000 units in 250 mls @ 6.94 mls/hr IV .Q24H PRN; Protocol; 9 UNITS/KG/HR PRN Reason: PROTOCOL Last Admin: 11/27/16 14:34 Dose: 9 units/kg/hr, 6.94 mls/hr Metoprolol Tartrate (Lopressor) 12.5 mg PO BID [facility] Last Admin: 11/27/16 19:03 Dose: 12.5 mg Rosuvastatin Calcium (Crestor) 20 mg PO HS [facility] Last Admin: 11/27/16 20:59 Dose: Not Given - Labs Labs: 11/27/16 06:26 11/27/16 06:25 PT 11.7 SECONDS (9.7-12.2) 11/26/16 14:20 INR 1.0 11/26/16 14:20 APTT 52 SECONDS (21-34) H D 11/27/16 11:48
[2016-11-28 06:39] LABS: CHLORIDE 106 mmol/L (98-107); SODIUM 141 mmol/L (132-148)
[2016-11-28 06:40] LABS: POTASSIUM 4.1 mmol/L (3.6-5.2)
[2016-11-28 06:42] LABS: ALB/GLOB RATIO 1.3 (1.0-2.1); ALKALINE PHOSPHATASE 65 U/L (38-126); ALT/SGPT 38 U/L (21-72); AST/SGOT 60 U/L (17-59); BILIRUBIN,TOTAL 0.6 mg/dL (0.2-1.3); BLOOD UREA NITROGEN 17 mg/dL (9-20); CARBON DIOXIDE 25 mmol/L (22-30); GFR AFRICAN-AMERICAN > 60; GLUCOSE,RANDOM 77 mg/dL (75-110); TOTAL PROTEIN 6.7 g/dL (6.3-8.3)
[2016-11-28 06:43] LABS: CALCIUM 8.7 mg/dl (8.6-10.4)
[2016-11-28 07:05] LABS: BASO # 0.1 K/uL (0.0-0.2); EOS # 0.4 K/uL (0.0-0.7); EOS % 5.3 % (0.0-4.0); HEMATOCRIT 38.6 % (35.0-51.0); LYMPH # 2.1 K/uL (1.0-4.3); LYMPH % 27.4 % (20.0-40.0); MEAN CELL VOLUME 87.4 fL (80.0-94.0); MEAN CORPUSCULAR HEMOGLOBIN 29.7 pg (27.0-31.0); MEAN CORPUSCULAR HGB CONC 33.9 g/dL (33.0-37.0); MEAN PLATELET VOLUME 9.3 fL (7.2-11.7); MONO # 0.4 K/uL (0.0-0.8); MONO % 5.7 % (0.0-10.0); NRBC % 1.5 % (0.0-2.0); RED CELL DISTRIBUTION WIDTH 14.7 % (11.5-14.5); WHITE BLOOD COUNT 7.5 K/uL (4.8-10.8)
--- NOTE | 2016-11-28 19:53 | CP.PCM.PN ---
Subjective - Date & Time of Evaluation Date of Evaluation: 11/28/16 Time of Evaluation: 12:50 - Subjective Subjective: clinically same Objective - Vital Signs/Intake and Output Vital Signs (last 24 hours): Temp Pulse Resp BP Pulse Ox 97.6 F 75 21 154/73 H 96 11/28/16 16:00 11/28/16 18:31 11/28/16 18:31 11/28/16 18:31 11/28/16 13:31 Intake and Output: 11/28/16 11/29/16 18:59 06:59 Intake Total 635.9 Output Total 1080 Balance -444.1 - Medications Medications: Current Medications Acetaminophen (Tylenol 325mg Tab) 650 mg PO Q6 PRN PRN Reason: Pain, Mild (1-3) Last Admin: 11/27/16 10:52 Dose: 650 mg Aspirin (Aspirin Chewable) 81 mg PO DAILY [facility] Last Admin: 11/28/16 09:53 Dose: 81 mg Clopidogrel Bisulfate (Plavix) 75 mg PO DAILY [facility] Last Admin: 11/28/16 09:52 Dose: 75 mg Famotidine (Pepcid) 20 mg PO BID [facility] Last Admin: 11/28/16 17:41 Dose: 20 mg Heparin Sodium/Sodium Chloride (Heparin 96615 Units/250ml 1/2 Normal Saline) 25 ,000 units in 250 mls @ 6.94 mls/hr IV .Q24H PRN; Protocol; 9 UNITS/KG/HR PRN Reason: PROTOCOL Last Admin: 11/27/16 14:34 Dose: 9 units/kg/hr, 6.94 mls/hr Metoprolol Tartrate (Lopressor) 12.5 mg PO BID [facility] Last Admin: 11/28/16 17:41 Dose: 12.5 mg Rosuvastatin Calcium (Crestor) 20 mg PO HS [facility] Last Admin: 11/27/16 20:59 Dose: Not Given - Labs Labs: 11/28/16 06:19 11/28/16 06:19 PT 11.7 SECONDS (9.7-12.2) 11/26/16 14:20 INR 1.0 11/26/16 14:20 APTT 45 SECONDS (21-34) H D 11/28/16 06:19
--- NOTE | 2016-11-28 21:57 | CP.PCM.PN ---
Subjective - Date & Time of Evaluation Date of Evaluation: 11/28/16 Time of Evaluation: 13:45 - Subjective Subjective: Patient seen and evaluated Denies chest pain and dyspnea Objective - Vital Signs/Intake and Output Vital Signs (last 24 hours): Temp Pulse Resp BP Pulse Ox 97.8 F 90 13 130/74 96 11/28/16 20:00 11/28/16 20:00 11/28/16 20:00 11/28/16 19:31 11/28/16 13:31 Intake and Output: 11/28/16 11/29/16 18:59 06:59 Intake Total 635.9 Output Total 1080 Balance -444.1 - Medications Medications: Current Medications Acetaminophen (Tylenol 325mg Tab) 650 mg PO Q6 PRN PRN Reason: Pain, Mild (1-3) Last Admin: 11/27/16 10:52 Dose: 650 mg Aspirin (Aspirin Chewable) 81 mg PO DAILY [facility] Last Admin: 11/28/16 09:53 Dose: 81 mg Clopidogrel Bisulfate (Plavix) 75 mg PO DAILY [facility] Last Admin: 11/28/16 09:52 Dose: 75 mg Famotidine (Pepcid) 20 mg PO BID [facility] Last Admin: 11/28/16 17:41 Dose: 20 mg Heparin Sodium/Sodium Chloride (Heparin 31221 Units/250ml 1/2 Normal Saline) 25 ,000 units in 250 mls @ 6.94 mls/hr IV .Q24H PRN; Protocol; 9 UNITS/KG/HR PRN Reason: PROTOCOL Last Admin: 11/27/16 14:34 Dose: 9 units/kg/hr, 6.94 mls/hr Metoprolol Tartrate (Lopressor) 12.5 mg PO BID [facility] Last Admin: 11/28/16 17:41 Dose: 12.5 mg Rosuvastatin Calcium (Crestor) 20 mg PO HS [facility] Last Admin: 11/28/16 21:07 Dose: 20 mg - Labs Labs: 11/28/16 06:19 11/28/16 06:19 PT 11.7 SECONDS (9.7-12.2) 11/26/16 14:20 INR 1.0 11/26/16 14:20 APTT 45 SECONDS (21-34) H D 11/28/16 06:19 - Head Exam Head Exam: ATRAUMATIC, NORMAL INSPECTION - Eye Exam Eye Exam: EOMI, PERRL Pupil Exam: NORMAL ACCOMODATION - ENT Exam ENT Exam: Mucous Membranes Moist, Normal Exam - Neck Exam Neck Exam: Full ROM, Normal Inspection - Respiratory Exam Respiratory Exam: Clear to Ausculation Bilateral, NORMAL BREATHING PATTERN - Cardiovascular Exam Cardiovascular Exam: REGULAR RHYTHM, +S1, +S2 - GI/Abdominal Exam GI & Abdominal Exam: Soft, Normal Bowel Sounds - Extremities Exam Extremities Exam: Full ROM - Neurological Exam Neurological Exam: Alert, Awake, Oriented x3 - Psychiatric Exam Psychiatric exam: Normal Affect, Normal Mood - Skin Skin Exam: Warm Assessment and Plan - Assessment and Plan (Free Text) Assessment: 1. 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 HTN 4. Hyperlipidemia For cath tomorrow at 2pm Hold Heparin at 7am tomorrow NPO after breakfast
[2016-11-29] MEDS: Heparin25000 units/250ml 1/2NS 25,000 UNITS/250 ML BAG IV PRN (03:09)
[2016-11-29 06:13] LABS: HEMATOCRIT 38.3 % (35.0-51.0); MEAN CELL VOLUME 87.2 fL (80.0-94.0); MEAN CORPUSCULAR HEMOGLOBIN 29.4 pg (27.0-31.0); MEAN CORPUSCULAR HGB CONC 33.7 g/dL (33.0-37.0); MEAN PLATELET VOLUME 8.8 fL (7.2-11.7); RED CELL DISTRIBUTION WIDTH 14.7 % (11.5-14.5); WHITE BLOOD COUNT 7.9 K/uL (4.8-10.8)
[2016-11-29 06:28] LABS: CHLORIDE 104 mmol/L (98-107)
[2016-11-29 06:29] LABS: SODIUM 139 mmol/L (132-148)
[2016-11-29 06:31] LABS: GFR AFRICAN-AMERICAN > 60
[2016-11-29 06:32] LABS: BLOOD UREA NITROGEN 16 mg/dL (9-20); CALCIUM 8.9 mg/dl (8.6-10.4); CARBON DIOXIDE 26 mmol/L (22-30); GLUCOSE,RANDOM 83 mg/dL (75-110)
[2016-11-29] MEDS ORDERED: Fluticasone Nasal 50 mcg/Spray NAS PRN ×2 (13:06→14:11)
[2016-11-29] MEDS ORDERED: Iohexol 350mg/ml 100 ML ONE (15:45)
[2016-11-29] MEDS ORDERED: Midazolam 2 MG/2 ML VIAL ONE (15:45)
[2016-11-29] MEDS ORDERED: Iodixanol 320 MG/ML 100 ML BOTTLE IV ONE ×2 (16:26→16:36)
--- NOTE | 2016-11-29 17:00 | CP.PCM.PN ---
Subjective - Date & Time of Evaluation Date of Evaluation: 11/29/16 Time of Evaluation: 16:58 - Subjective Subjective: Patient s/p Cath 1. L main: Patent 2. LAD: Proximal 100% 3. L Cx: ostial 85%. Large OM2 100% 3. RCA: Patent 4. SVT to OM2 patent 5. BAUTISTA to LAD 95% after touch down 6. EF 60% Plan: PCI of BAUTISTA and L Cx Objective - Vital Signs/Intake and Output Vital Signs (last 24 hours): Temp Pulse Resp BP Pulse Ox 98.2 F 65 20 135/62 97 11/29/16 12:00 11/29/16 14:30 11/29/16 14:30 11/29/16 14:30 11/29/16 14:30 Intake and Output: 11/29/16 11/29/16 06:59 18:59 Intake Total 250 0 Balance 250 0 - Medications Medications: Current Medications Acetaminophen (Tylenol 325mg Tab) 650 mg PO Q6 PRN PRN Reason: Pain, Mild (1-3) Last Admin: 11/27/16 10:52 Dose: 650 mg Aspirin (Aspirin Chewable) 81 mg PO DAILY [facility] Last Admin: 11/29/16 09:02 Dose: 81 mg Clopidogrel Bisulfate (Plavix) 75 mg PO DAILY [facility] Last Admin: 11/29/16 09:02 Dose: 75 mg Enoxaparin Sodium (Lovenox) 30 mg SC DAILY [facility] Famotidine (Pepcid) 20 mg PO BID [facility] Last Admin: 11/29/16 09:02 Dose: 20 mg Fluticasone Propionate (Flonase) 1 spr PONCHO DAILY PRN PRN Reason: Allergy symptoms Sodium Chloride (Sodium Chloride 0.9%) 500 mls @ 70 mls/hr IV .Q7H9M [facility] Stop: 11/30/16 07:00 Metoprolol Tartrate (Lopressor) 12.5 mg PO BID [facility] Last Admin: 11/29/16 09:02 Dose: 12.5 mg Rosuvastatin Calcium (Crestor) 20 mg PO [facility] Last Admin: 11/28/16 21:07 Dose: 20 mg - Labs Labs: 11/29/16 06:00 11/29/16 06:00 PT 11.7 SECONDS (9.7-12.2) 09/15/17 14:20 INR 1.0 11/26/16 14:20 APTT 44 SECONDS (21-34) H 11/29/16 06:00
[2016-11-29] MEDS: Sodium Chloride 0.9% 500 ML IV SCH ×2 (17:20→21:40)
--- NOTE | 2016-11-29 18:05 | CP.PCM.PN ---
Subjective - Date & Time of Evaluation Date of Evaluation: 11/29/16 Time of Evaluation: 13:20 - Subjective Subjective: clinically same Objective - Vital Signs/Intake and Output Vital Signs (last 24 hours): Temp Pulse Resp BP Pulse Ox 98.2 F 65 20 135/62 97 11/29/16 12:00 11/29/16 14:30 11/29/16 14:30 11/29/16 14:30 11/29/16 14:30 Intake and Output: 11/29/16 11/29/16 06:59 18:59 Intake Total 250 0 Balance 250 0 - Medications Medications: Current Medications Acetaminophen (Tylenol 325mg Tab) 650 mg PO Q6 PRN PRN Reason: Pain, Mild (1-3) Last Admin: 11/27/16 10:52 Dose: 650 mg Aspirin (Aspirin Chewable) 81 mg PO DAILY [facility] Last Admin: 11/29/16 09:02 Dose: 81 mg Clopidogrel Bisulfate (Plavix) 75 mg PO DAILY [facility] Last Admin: 11/29/16 09:02 Dose: 75 mg Enoxaparin Sodium (Lovenox) 30 mg SC DAILY [facility] Famotidine (Pepcid) 20 mg PO BID [facility] Last Admin: 11/29/16 17:29 Dose: 20 mg Fluticasone Propionate (Flonase) 1 spr PONCHO DAILY PRN PRN Reason: Allergy symptoms Sodium Chloride (Sodium Chloride 0.9%) 500 mls @ 70 mls/hr IV .Q7H9M [facility] Stop: 11/30/16 07:00 Metoprolol Tartrate (Lopressor) 12.5 mg PO BID [facility] Last Admin: 11/29/16 17:29 Dose: 12.5 mg Rosuvastatin Calcium (Crestor) 20 mg PO [facility] Last Admin: 11/28/16 21:07 Dose: 20 mg - Labs Labs: 11/29/16 06:00 11/29/16 06:00 PT 11.7 SECONDS (9.7-12.2) 11/26/16 14:20 INR 1.0 11/26/16 14:20 APTT 44 SECONDS (21-34) H 11/29/16 06:00 - Constitutional Appears: Well - Head Exam Head Exam: ATRAUMATIC, NORMAL INSPECTION, NORMOCEPHALIC - Eye Exam Eye Exam: EOMI, Normal appearance, PERRL Pupil Exam: NORMAL ACCOMODATION, PERRL - ENT Exam ENT Exam: Mucous Membranes Moist, Normal Exam - Neck Exam Neck Exam: Full ROM, Normal Inspection. absent: Lymphadenopathy - Respiratory Exam Respiratory Exam: Decreased Breath Sounds - Cardiovascular Exam Cardiovascular Exam: REGULAR RHYTHM, +S1, +S2 - GI/Abdominal Exam GI & Abdominal Exam: Soft, Diminished Bowel Sounds - Rectal Exam Rectal Exam: Deferred
[2016-11-30] MEDS: Sodium Chloride 0.9% 500 ML IV SCH (06:40)
[2016-11-30 06:45] LABS: HEMATOCRIT 37.6 % (35.0-51.0); MEAN CELL VOLUME 87.1 fL (80.0-94.0); MEAN CORPUSCULAR HEMOGLOBIN 29.4 pg (27.0-31.0); MEAN CORPUSCULAR HGB CONC 33.7 g/dL (33.0-37.0); MEAN PLATELET VOLUME 8.8 fL (7.2-11.7); RED CELL DISTRIBUTION WIDTH 14.4 % (11.5-14.5); WHITE BLOOD COUNT 7.4 K/uL (4.8-10.8)
[2016-11-30 06:53] LABS: CHLORIDE 105 mmol/L (98-107); SODIUM 137 mmol/L (132-148)
[2016-11-30 06:56] LABS: CARBON DIOXIDE 22 mmol/L (22-30); GFR AFRICAN-AMERICAN > 60
[2016-11-30 06:57] LABS: BLOOD UREA NITROGEN 14 mg/dL (9-20); CALCIUM 8.6 mg/dl (8.6-10.4); GLUCOSE,RANDOM 76 mg/dL (75-110)
[2016-11-30] MEDS: Enoxaparin 30 mg Syringe SC SCH (09:30)
--- NOTE | 2016-11-30 15:53 | CP.PCM.PN ---
Subjective - Date & Time of Evaluation Date of Evaluation: 11/30/16 Time of Evaluation: 15:50 - Subjective Subjective: Patient s/p BAUTISTA to LAD stent (Distal LAD) with RENE Procedure uneventful OOB to Ambulate after 7pm tonight NS 70Ccc/Hr for 12 hours (EF 60%) ASA, Plavix, Statins, B blockers, NU I Check labs in am Resume diet Objective - Vital Signs/Intake and Output Vital Signs (last 24 hours): Temp Pulse Resp BP Pulse Ox 97.9 F 75 11 L 132/55 L 97 11/30/16 11:59 11/30/16 12:12 11/30/16 12:12 11/30/16 12:12 11/30/16 12:12 Intake and Output: 11/30/16 11/30/16 06:59 18:59 Intake Total 800 510 Output Total 1500 200 Balance -700 310 - Medications Medications: Current Medications Acetaminophen (Tylenol 325mg Tab) 650 mg PO Q6 PRN PRN Reason: Pain, Mild (1-3) Last Admin: 11/27/16 10:52 Dose: 650 mg Aspirin (Aspirin Chewable) 81 mg PO DAILY [facility] Last Admin: 11/30/16 09:29 Dose: 81 mg Clopidogrel Bisulfate (Plavix) 75 mg PO DAILY [facility] Last Admin: 11/30/16 09:30 Dose: 75 mg Enoxaparin Sodium (Lovenox) 30 mg SC DAILY [facility] Last Admin: 11/30/16 09:30 Dose: 30 mg Famotidine (Pepcid) 20 mg PO BID [facility] Last Admin: 11/30/16 09:30 Dose: 20 mg Fluticasone Propionate (Flonase) 1 spr PONCHO DAILY PRN PRN Reason: Allergy symptoms Metoprolol Tartrate (Lopressor) 12.5 mg PO BID [facility] Last Admin: 11/30/16 09:30 Dose: 12.5 mg Rosuvastatin Calcium (Crestor) 20 mg PO HS [facility] Last Admin: 11/29/16 21:38 Dose: 20 mg - Labs Labs: 11/30/16 06:42 11/30/16 06:42 PT 11.7 SECONDS (9.7-12.2) 11/26/16 14:20 INR 1.0 11/26/16 14:20 APTT 44 SECONDS (21-34) H 11/29/16 06:00
--- NOTE | 2016-11-30 21:32 | CP.PCM.PN ---
Subjective - Date & Time of Evaluation Date of Evaluation: 11/30/16 Time of Evaluation: 14:00 - Subjective Subjective: clinically same Objective - Vital Signs/Intake and Output Vital Signs (last 24 hours): Temp Pulse Resp BP Pulse Ox 97.9 F 75 11 L 132/55 L 97 11/30/16 11:59 11/30/16 12:12 11/30/16 12:12 11/30/16 12:12 11/30/16 12:12 Intake and Output: 11/30/16 12/01/16 18:59 06:59 Intake Total 510 Output Total 570 Balance -60 - Medications Medications: Current Medications Acetaminophen (Tylenol 325mg Tab) 650 mg PO Q6 PRN PRN Reason: Pain, Mild (1-3) Last Admin: 11/27/16 10:52 Dose: 650 mg Aspirin (Aspirin Chewable) 81 mg PO DAILY [facility] Last Admin: 11/30/16 09:29 Dose: 81 mg Clopidogrel Bisulfate (Plavix) 75 mg PO DAILY [facility] Last Admin: 11/30/16 09:30 Dose: 75 mg Enoxaparin Sodium (Lovenox) 30 mg SC DAILY [facility] Last Admin: 11/30/16 09:30 Dose: 30 mg Famotidine (Pepcid) 20 mg PO BID [facility] Last Admin: 11/30/16 09:30 Dose: 20 mg Fluticasone Propionate (Flonase) 1 spr PONCHO DAILY PRN PRN Reason: Allergy symptoms Sodium Chloride (Sodium Chloride 0.9%) 1,000 mls @ 70 mls/hr IV .[id number] [facility] Stop: 12/01/16 12:00 Metoprolol Tartrate (Lopressor) 12.5 mg PO BID [facility] Last Admin: 11/30/16 09:30 Dose: 12.5 mg Rosuvastatin Calcium (Crestor) 20 mg PO HS [facility] Last Admin: 11/29/16 21:38 Dose: 20 mg - Labs Labs: 11/30/16 06:42 11/30/16 06:42 PT 11.7 SECONDS (9.7-12.2) 11/26/16 14:20 INR 1.0 11/26/16 14:20 APTT 44 SECONDS (21-34) H 11/29/16 06:00 - Constitutional Appears: Well - Head Exam Head Exam: ATRAUMATIC, NORMAL INSPECTION, NORMOCEPHALIC - Eye Exam Eye Exam: EOMI, Normal appearance, PERRL Pupil Exam: NORMAL ACCOMODATION, PERRL - ENT Exam ENT Exam: Mucous Membranes Moist, Normal Exam - Neck Exam Neck Exam: Full ROM, Normal Inspection. absent: Lymphadenopathy - Respiratory Exam Respiratory Exam: Decreased Breath Sounds - Cardiovascular Exam Cardiovascular Exam: REGULAR RHYTHM, +S1, +S2 - GI/Abdominal Exam GI & Abdominal Exam: Soft, Diminished Bowel Sounds - Rectal Exam Rectal Exam: Deferred
[2016-11-30] MEDS: Sodium Chloride 0.9% 1,000 ML IV SCH (22:04)
[2016-12-01 06:23] LABS: HEMATOCRIT 35.4 % (35.0-51.0); MEAN CELL VOLUME 87.5 fL (80.0-94.0); MEAN CORPUSCULAR HEMOGLOBIN 29.3 pg (27.0-31.0); MEAN CORPUSCULAR HGB CONC 33.4 g/dL (33.0-37.0); MEAN PLATELET VOLUME 9.3 fL (7.2-11.7); RED CELL DISTRIBUTION WIDTH 14.4 % (11.5-14.5); WHITE BLOOD COUNT 8.1 K/uL (4.8-10.8)
[2016-12-01 06:34] LABS: CHLORIDE 109 mmol/L (98-107); POTASSIUM 4.1 mmol/L (3.6-5.2); SODIUM 140 mmol/L (132-148)
[2016-12-01 06:37] LABS: BLOOD UREA NITROGEN 12 mg/dL (9-20); CALCIUM 8.1 mg/dl (8.6-10.4); CARBON DIOXIDE 23 mmol/L (22-30); GFR AFRICAN-AMERICAN > 60; GLUCOSE,RANDOM 80 mg/dL (75-110)
[2016-12-01] MEDS: Sodium Chloride 0.9% 1,000 ML IV SCH (07:18)
[2016-12-01 08:20] VITALS: TEMP 98.1
[2016-12-01] MEDS: Enoxaparin 30 mg Syringe SC SCH (09:42)
[2016-12-01 10:33] VITALS: BP 136/69
[2016-12-01 11:17] VITALS: PULSE 83; RESP 16; O2SAT 96
--- NOTE | 2016-12-01 21:30 | CP.PCM.PN ---
Subjective - Date & Time of Evaluation Date of Evaluation: 12/01/16 Time of Evaluation: 07:00 - Subjective Subjective: Patient seen and evaluated Denies chest pain and dyspnea Wants to go home Cleared cardiac point of view Scripts given Patient will f/u with me in 1-2 weeks Objective - Vital Signs/Intake and Output Vital Signs (last 24 hours): Temp Pulse Resp BP Pulse Ox 98.1 F 83 16 136/69 96 12/01/16 08:00 12/01/16 11:00 12/01/16 11:00 12/01/16 10:29 12/01/16 11:00 Intake and Output: 12/01/16 12/02/16 18:59 06:59 Intake Total 510 Output Total 200 Balance 310 - Labs Labs: 12/01/16 06:12 12/01/16 06:12 PT 11.7 SECONDS (9.7-12.2) 11/26/16 14:20 INR 1.0 11/26/16 14:20 APTT 44 SECONDS (21-34) H 11/29/16 06:00
--- NOTE | 2016-12-01 21:58 | CP.PCM.DIS ---
Provider - Provider Date of Admission: 11/26/16 16:27 Attending physician: Paul Noble MD Hospital Course - Lab Results Lab Results: Micro Results 11/26/16 18:00 Naris MRSA Culture (Admit) - Final MRSA NOT DETECTED Most Recent Lab Values WBC 8.1 K/uL (4.8-10.8) 12/01/16 06:12 RBC 4.05 Mil/uL (4.40-5.90) L 12/01/16 06:12 Hgb 11.9 g/dL (12.0-18.0) L 12/01/16 06:12 Hct 35.4 % (35.0-51.0) 12/01/16 06:12 MCV 87.5 fL (80.0-94.0) 12/01/16 06:12 MCH 29.3 pg (27.0-31.0) 12/01/16 06:12 MCHC 33.4 g/dL (33.0-37.0) 12/01/16 06:12 RDW 14.4 % (11.5-14.5) 12/01/16 06:12 Plt Count 186 K/uL (130-400) 12/01/16 06:12 MPV 9.3 fL (7.2-11.7) 12/01/16 06:12 Neut % (Auto) 60.6 % (50.0-75.0) 11/28/16 06:19 Lymph % (Auto) 27.4 % (20.0-40.0) 11/28/16 06:19 Kern % (Auto) 5.7 % (0.0-10.0) 11/28/16 06:19 Eos % (Auto) 5.3 % (0.0-4.0) H 11/28/16 06:19 Baso % (Auto) 1.0 % (0.0-2.0) 11/28/16 06:19 Neut # 4.6 K/uL (1.8-7.0) 11/28/16 06:19 Lymph # 2.1 K/uL (1.0-4.3) 11/28/16 06:19 Kern # 0.4 K/uL (0.0-0.8) 11/28/16 06:19 Eos # 0.4 K/uL (0.0-0.7) 11/28/16 06:19 Baso # 0.1 K/uL (0.0-0.2) 11/28/16 06:19 Differential Comment 11/28/16 06:19 PT 11.7 SECONDS (9.7-12.2) 11/26/16 14:20 INR 1.0 11/26/16 14:20 APTT 44 SECONDS (21-34) H 11/29/16 06:00 D-Dimer, Quantitative 247 ng/mlDDU (0-243) H 11/26/16 14:20 Sodium 140 mmol/L (132-148) 12/01/16 06:12 Potassium 4.1 mmol/L (3.6-5.2) 12/01/16 06:12 Chloride 109 mmol/L (98-107) H 12/01/16 06:12 Carbon Dioxide 23 mmol/L (22-30) 12/01/16 06:12 Anion Gap 12 (10-20) 12/01/16 06:12 BUN 12 mg/dL (9-20) 12/01/16 06:12 Creatinine 0.9 MG/DL (0.8-1.5) 12/01/16 06:12 Est GFR ( Amer) > 60 12/01/16 06:12 Est GFR (Non-Af Amer) > 60 12/01/16 06:12 Random Glucose 80 mg/dL (75-110) 12/01/16 06:12 Calcium 8.1 mg/dl (8.6-10.4) L 12/01/16 06:12 Phosphorus 3.0 mg/dL (2.5-4.5) 11/28/16 06:19 Magnesium 2.0 mg/dL (1.6-2.3) 11/28/16 06:19 Total Bilirubin 0.6 mg/dL (0.2-1.3) 11/28/16 06:19 AST 60 U/L (17-59) H D 11/28/16 06:19 ALT 38 U/L (21-72) 11/28/16 06:19 Alkaline Phosphatase 65 U/L (38-126) 11/28/16 06:19 Total Creatine Kinase 86 U/L (55-170) 11/30/16 06:42 CK-MB (Mass) 2.75 ng/mL (0.0-3.38) 11/30/16 06:42 Troponin I 2.6400 ng/mL (0.00-0.120) H* 11/30/16 06:42 Troponin I, Quant 0.2500 ng/mL (0.00-0.120) H* 11/26/16 14:20 NT-Pro-B Natriuret Pep 305 pg/mL (0-900) 11/26/16 14:20 Total Protein 6.7 g/dL (6.3-8.3) 11/28/16 06:19 Albumin 3.7 g/dL (3.5-5.0) 11/28/16 06:19 Globulin 3.0 gm/dL (2.2-3.9) 11/28/16 06:19 Albumin/Globulin Ratio 1.3 (1.0-2.1) 11/28/16 06:19 Discharge Exam - Head Exam Head Exam: ATRAUMATIC, NORMAL INSPECTION, NORMOCEPHALIC Discharge Plan - Discharge Medications Prescriptions: Aspirin [Aspirin Chewable] 81 mg PO DAILY #90 chew Clopidogrel [Plavix] 75 mg PO DAILY #90 tab - Follow Up Plan Condition: SERIOUS Disposition: HOME/ ROUTINE Instructions: Myocardial Infarction (DC), Chest Pain (DC) Additional Instructions: Follow up with Dr Moreno next tuesday12/08/[address] Eliceo Noble next week Referrals: Florencio Moreno MD [Staff Provider] - Darcy Noble MD [Staff Provider] -
--- NOTE | 2016-12-02 00:46 | CARD ---
APPROVED REPORT EXAM: Two-dimensional and M-mode echocardiogram with Doppler and color Doppler. Other Information Technically limited study due to INDICATION Elevation mi M-Mode DIMENSIONS Left Atrium (MM)4.82 (2.5-4.0cm)IVSd1.04 (0.7-1.1cm) Aortic Root3.30 (2.2-3.7cm)LVDd7.38 (4.0-5.6cm) Aortic Cusp Exc.1.81 (1.5-2.0cm)PWd0.92 (0.7-1.1cm) Mitral Valve MV E Tqvjpwlu01.1cm/sMV A Lygyyxoj06.1cm/sE/A ratio0.5 TDI E/Lateral E'0.0E/Medial E'0.0 Tricuspid Valve TR Peak Wuqxuzlt104yi/sTR Peak Gr.38blHnWECN70pyMp LEFT VENTRICLE The left ventricle is normal size. There is borderline concentric left ventricular hypertrophy. The left ventricular function is normal. The left ventricular ejection fraction is within the normal range. 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 THE ANTERIOR AND INFERIOR FELDER ARE NOT SEEN THE APICAL 2 CHAMBER IMAGES WERE NOT OBTAINED. ADDITIONALLY THE PARASTERNAL SHORT AXIS IMAGES WERE NOT OBTAINED. Transmitral Doppler flow pattern is Grade I-abnormal relaxation pattern. RIGHT VENTRICLE The right ventricle is normal size. There is normal right ventricular wall thickness. The right ventricular systolic function is normal. ATRIA The left atrium is moderately dilated. The right atrium size is normal. AORTIC VALVE AV IS NOT WELL VISUALIZED, PARASTERNAL SHORT AXIS IMAGES WERE NOT OBTAINED No aortic regurgitation is present. There is no aortic valvular stenosis. MITRAL VALVE Mitral annular calcification is mild. There is no evidence of mitral valve prolapse. There is no mitral valve stenosis. There is no mitral valve regurgitation noted. TRICUSPID VALVE The tricuspid valve is normal in structure. There is mild tricuspid regurgitation. There is no tricuspid valve prolapse or vegetation. There is no tricuspid valve stenosis. PULMONIC VALVE PV IS NOT VISUALIZED GREAT VESSELS The aortic root is normal in size. The ascending aorta is normal in size. The IVC is normal in size and collapses >50% with inspiration. <Conclusion> The left ventricular function is normal. There is borderline concentric left ventricular hypertrophy. 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 THE ANTERIOR AND INFERIOR FELDER ARE NOT SEEN THE APICAL 2 CHAMBER IMAGES WERE NOT OBTAINED. ADDITIONALLY THE PARASTERNAL SHORT AXIS IMAGES WERE NOT OBTAINED. Transmitral Doppler flow pattern is Grade I-abnormal relaxation pattern. The left atrium is moderately dilated. AV IS NOT WELL VISUALIZED, PARASTERNAL SHORT AXIS IMAGES WERE NOT OBTAINED Mitral annular calcification is mild. There is mild tricuspid regurgitation.
--- NOTE | 2016-12-02 00:59 | CARD ---
APPROVED REPORT EKG Measurement Heart [id number] <Conclusion> Sinus rhythm with 1st degree AV block Otherwise normal ECG
== END 2016-12-01 12:30 | disposition home or self-care (01) | DRG 281 ==
LOC: C.ER 13:32 → C.9I 16:27
PROVIDERS: ADMIT Internal Medicine Nephrology; ATTEND Internal Medicine Nephrology
DX: I21.4 Non-ST elevation (NSTEMI) myocardial infarction (principal); I47.1 Supraventricular tachycardia; Z95.1 Presence of aortocoronary bypass graft; I10 Essential (primary) hypertension; I25.10 Atherosclerotic heart disease of native coronary artery without angina pectoris; E78.5 Hyperlipidemia, unspecified; Z79.02 Long term (current) use of antithrombotics/antiplatelets; Z79.899 Other long term (current) drug therapy; Z95.5 Presence of coronary angioplasty implant and graft

== ENCOUNTER 2017-02-25 08:11 | Emergency (ER) | payer MEDICARE ==
[2017-02-25 08:11] VITALS: BMI 31.3
[2017-02-25 09:03] LABS: BASO % 0.5 % (0.0-2.0); EOS # 0.4 K/uL (0.0-0.7); EOS % 6.1 % (0.0-4.0); HEMATOCRIT 39.2 % (35.0-51.0); LYMPH # 1.6 K/uL (1.0-4.3); LYMPH % 24.7 % (20.0-40.0); MEAN CORPUSCULAR HEMOGLOBIN 28.8 pg (27.0-31.0); MEAN CORPUSCULAR HGB CONC 32.7 g/dL (33.0-37.0); MEAN PLATELET VOLUME 8.7 fL (7.2-11.7); MONO # 0.7 K/uL (0.0-0.8); MONO % 10.9 % (0.0-10.0); RED CELL DISTRIBUTION WIDTH 14.3 % (11.5-14.5); WHITE BLOOD COUNT 6.4 K/uL (4.8-10.8)
[2017-02-25 09:13] LABS: ALB/GLOB RATIO 1.4 (1.0-2.1); ALKALINE PHOSPHATASE 66 U/L (38-126); ALT/SGPT 44 U/L (21-72); AST/SGOT 28 U/L (17-59); BILIRUBIN,TOTAL 0.5 mg/dL (0.2-1.3); BLOOD UREA NITROGEN 16 mg/dL (9-20); CALCIUM 8.5 mg/dl (8.6-10.4); CARBON DIOXIDE 31 mmol/L (22-30); CHLORIDE 102 mmol/L (98-107); GFR AFRICAN-AMERICAN > 60; GLUCOSE,RANDOM 100 mg/dL (75-110); POTASSIUM 4.1 mmol/L (3.6-5.2); SODIUM 140 mmol/L (132-148); TOTAL PROTEIN 6.8 g/dL (6.3-8.3)
--- NOTE | 2017-02-25 09:22 | C.PDOC ---
History Of Present Illness 86 y/o male, with history of HTN, CABG, and recent stents placed by Dr. Moreno, presents to ED for evaluation of cough, shortness of breath, and chest tightness developed yesterday after shoveling snow. Denies any phlegm, fever, or any other associated symptoms at this time. Time Seen by Provider: 02/25/17 08:24 Chief Complaint (Nursing): Shortness Of Breath History Per: Patient History/Exam Limitations: no limitations Onset/Duration Of Symptoms: Days Current Symptoms Are (Timing): Still Present Quality: Tightness Exacerbating Factor(s): Coughing Past Medical History Reviewed: Historical Data, Nursing Documentation, Vital Signs Vital Signs: Last Vital Signs Temp 98.5 F 02/25/17 11:50 Pulse 99 H 02/25/17 11:50 Resp 18 02/25/17 11:50 BP 146/61 02/25/17 11:50 Pulse Ox 97 02/25/17 15:17 - Medical History PMH: HTN Surgical History: CABG (x4), Coronary Stent (x7) - [facility] Procedures FLUOROSCOPY OF L INT MAMM GRAFT USING L OSM CONTRAST (11/26/16) FLUOROSCOPY OF LEFT HEART USING LOW OSMOLAR CONTRAST (11/26/16) FLUOROSCOPY OF MULT COR A GRAFT USING L OSM CONTRAST (11/26/16) FLUOROSCOPY OF MULT COR ART USING L OSM CONTRAST (11/26/16) FLUOROSCOPY OF SING COR A GRAFT USING L OSM CONTRAST (11/26/16) FLUOROSCOPY OF THORACO-ABDOMINAL AORTA USING L OSM CONTRAST (11/26/16) MEASURE OF CARDIAC SAMPL & PRESSURE, L HEART, PERC APPROACH (11/26/16) Family History: States: Unknown Family Hx - Social History Hx Tobacco Use: No Hx Alcohol Use: No Hx Substance Use: No - Immunization History Hx Tetanus Toxoid Vaccination: No Hx Influenza Vaccination: No Hx Pneumococcal Vaccination: Yes Review Of Systems Except As Marked, All Systems Reviewed And Found Negative. Constitutional: Negative for: Fever, Chills Cardiovascular: Positive for: Chest Pain. Negative for: Palpitations, Light Headedness Respiratory: Positive for: Cough, Shortness of Breath. Negative for: Hemoptysis , Sputum Physical Exam - Physical Exam Appears: Non-toxic, No Acute Distress Skin: Normal Color, Warm, Dry Head: Atraumatic, Normacephalic Eye(s): bilateral: Normal Inspection Oral Mucosa: Moist Neck: Normal ROM, Supple Chest: Symmetrical, Tenderness (non reproducible chest tenderness ) Cardiovascular: Rhythm Regular, No Murmur Respiratory: Normal Breath Sounds, No Rales, No Rhonchi, No Wheezing, Other ( coughing) Gastrointestinal/Abdominal: Soft, No Tenderness Extremity: Normal ROM, No Pedal Edema Neurological/Psych: Oriented x3, Normal Speech ED Course And Treatment - Laboratory Results Result Diagrams: 02/25/17 08:53 02/25/17 08:53 Lab Interpretation: Normal ECG: Interpreted By Me ECG Rhythm: Sinus Rhythm ECG Interpretation: No Acute Changes Rate From EC O2 Sat by Pulse Oximetry: 97 Pulse Ox Interpretation: Normal - Radiology CXR: Interpreted by Me CXR Interpretation: Yes: No Acute Disease - Other Rad No standard instances X-Ray: Viewed By Me, Read By Radiologist Interpretation: FINDINGS: LINES AND TUBES: None. LUNG AND PLEURA: The lungs are well inflated. There is airspace disease in the left retrocardiac region. There is an apparent 9 mm nodular opacity in the left lung base. HEART AND MEDIASTINUM: The heart is not enlarged. Status post CABG. The hilar and mediastinal contours are within normal limits. SKELETAL STRUCTURES: The bony structures are within normal limits for the patient's age. VISUALIZED UPPER ABDOMEN: Normal. OTHER FINDINGS: None. IMPRESSION: Airspace disease in the left retrocardiac region may represent subsegmental atelectasis however superimposed pneumonia cannot be excluded. Follow-up after medical management is recommended to ensure complete resolution. Apparent 9 mm nodular opacities in the left lung base may represent nipple shadow however parenchymal nodule cannot be excluded. Repeat radiographs with nipple markers are recommended. Progress Note: EKG, CXR, Influenza AB, blood work ordered and reviewed. Treated with Duoneb x 2. On re-evaluation lungs clear Reassessment Condition: Improved - Physician Consult Information Physician Contacted: Darcy Noble Outcome Of Conversation: admit Medical Decision Making Medical Decision Making: Patient recently admitted with Non-stemi pateint reports he was shoveling snow and developed chest tightness and SOB associated with cough Disposition Discussed With : Darcy Noble Doctor Will See Patient In The: Hospital - Disposition Disposition: HOSPITALIZED Disposition Time: 11:00 Condition: STABLE - POA Present On Arrival: None - Clinical Impression Clinical Impression: Chest pain, Dyspnea - PA / REF[employer]OR [employer]ER / Resident Statement MD/DO has reviewed & agrees with the documentation as recorded. - Scribe Statement The provider has reviewed the documentation as recorded by the Emma Noble All medical record entries made by the Lisaibtaj were at my direction and personally dictated by me. I have reviewed the chart and agree that the record accurately reflects my personal performance of the history, physical exam, medical decision making, and the department course for this patient. I have also personally directed, reviewed, and agree with the discharge instructions and disposition. Decision To Admit - Pt Status Changed To: Hospital Disposition Of: Observation - . Bed Request Type: Telemetry Admitting Physician: Darcy Noble Patient Diagnosis: Chest pain, Dyspnea
--- NOTE | 2017-02-25 09:40 | RAD ---
HISTORY: COMPARISON: 11/26/2016. TECHNIQUE: Chest PA and lateral FINDINGS: LINES AND TUBES: None. LUNG AND PLEURA: The lungs are well inflated. There is airspace disease in the left retrocardiac region. There is an apparent 9 mm nodular opacity in the left lung base. HEART AND MEDIASTINUM: The heart is not enlarged. Status post CABG. The hilar and mediastinal contours are within normal limits. SKELETAL STRUCTURES: The bony structures are within normal limits for the patient's age. VISUALIZED UPPER ABDOMEN: Normal. OTHER FINDINGS: None. IMPRESSION: Airspace disease in the left retrocardiac region may represent subsegmental atelectasis however superimposed pneumonia cannot be excluded. Follow-up after medical management is recommended to ensure complete resolution. Apparent 9 mm nodular opacities in the left lung base may represent nipple shadow however parenchymal nodule cannot be excluded. Repeat radiographs with nipple markers are recommended. The final report is tagged to the PA review folder for further follow-up.
[2017-02-25] MEDS: Albuterol-Ipratrop 3 mg / 0.5 (3 ml) UD IH SCH ×2 (10:35→10:50)
[2017-02-25] MEDS ORDERED: Albuterol-Ipratrop 3 mg / 0.5 (3 ml) UD ONE (10:37)
[2017-02-25 11:52] VITALS: PULSE 99; RESP 18
[2017-02-25 16:09] VITALS: BP 153/97; TEMP 98.6; O2SAT 99
--- NOTE | 2017-02-28 22:29 | CARD ---
APPROVED REPORT EKG Measurement Heart [id number] <Conclusion> Sinus rhythm
== END 2017-02-25 16:10 | disposition left against medical advice (07) ==
LOC: C.ER 08:11 → UNDOADMOB 11:00 → C.9E 11:00 → UNDODISOB 16:05 → C.ER 16:10
DX: R06.02 Shortness of breath (principal); I10 Essential (primary) hypertension; I25.2 Old myocardial infarction
CPT/HCPCS: 71020; 80053; 83880; 84484; 85025; 87040; 87804; 94640; 99285; G0378

== ENCOUNTER 2017-11-01 08:02 | Emergency (ER) | payer MEDICARE, OTHER ==
[2017-11-01 08:02] VITALS: BMI 31.3
[2017-11-01] MEDS ORDERED: Tdap Vaccine 0.5 ml Vial (10-64 yrs) IM ONE ×2 (09:10→10:44)
[2017-11-01] MEDS ORDERED: Fluorescein 1 mg Ophthalmic Strip OS ONE (09:19)
--- NOTE | 2017-11-01 09:21 | C.PDOC ---
History Of Present Illness 86 y/o male c/o left eye pain and fb sensation since using a magazine grinder loader on metal last night with no protective eyewear. last tdap unknown. Time Seen by Provider: 11/01/17 08:34 Chief Complaint (Nursing): Eye Problem History Per: Patient History/Exam Limitations: no limitations Onset/Duration Of Symptoms: Hrs Current Symptoms Are (Timing): Still Present Injury To Eye?: Yes Severity: Moderate Quality: Sharp Wears Contact Lens?: No Associated Symptoms: Pain, Decreased Vision, FB Sensation Past Medical History Reviewed: Historical Data, Nursing Documentation, Vital Signs Vital Signs: Last Vital Signs Temp 98.3 F 11/01/17 12:24 Pulse 88 11/01/17 12:24 Resp 18 11/01/17 12:24 BP 141/80 11/01/17 12:24 Pulse Ox 98 11/03/17 16:48 - Medical History PMH: HTN Denies: Asthma, Bronchitis Surgical History: CABG (x4), Coronary Stent (x7) - [facility] Procedures FLUOROSCOPY OF L INT MAMM GRAFT USING L OSM CONTRAST (11/26/16) FLUOROSCOPY OF LEFT HEART USING LOW OSMOLAR CONTRAST (11/26/16) FLUOROSCOPY OF MULT COR A GRAFT USING L OSM CONTRAST (11/26/16) FLUOROSCOPY OF MULT COR ART USING L OSM CONTRAST (11/26/16) FLUOROSCOPY OF SING COR A GRAFT USING L OSM CONTRAST (11/26/16) FLUOROSCOPY OF THORACO-ABDOMINAL AORTA USING L OSM CONTRAST (11/26/16) MEASURE OF CARDIAC SAMPL & PRESSURE, L HEART, PERC APPROACH (11/26/16) Family History: States: Unknown Family Hx - Social History Hx Tobacco Use: No Hx Alcohol Use: No Hx Substance Use: No - Immunization History Hx Tetanus Toxoid Vaccination: No Hx Influenza Vaccination: No Hx Pneumococcal Vaccination: Yes Review Of Systems Constitutional: Negative for: Fever, Chills Eyes: Positive for: Pain, Vision Change, Conjunctivae Inflammation. Negative for: Eyelid Inflammation ENT: Negative for: Ear Pain, Mouth Pain, Mouth Swelling, Throat Pain Cardiovascular: Negative for: Chest Pain Respiratory: Negative for: Cough Skin: Negative for: Rash Neurological: Negative for: Weakness, Numbness Physical Exam - Physical Exam Appears: Non-toxic, No Acute Distress Skin: Warm, Dry Head: Atraumatic, Normacephalic Eye(s): bilateral: PERRL, EOMI, right: Normal Inspection, left: Other (left conjunctiva injected; tiny black fb noted on medial lower apect of cornea; removed gently with a q-tip. no fb notd under lid. uptake noted at site after fluorescein staining. ) Nose: No Epistaxis ED Course And Treatment O2 Sat by Pulse Oximetry: 98 Medical Decision Making Medical Decision Making: pt with fb noted in eye s/p welding yesterday with no safety goggles. tdap updated. pt reports blurry vision, with va on left eye of 20/200. fb removed with qtip. after tetracaine/fluorescceine, uptake noted where fb was on cornea. va rechecked and now 20/50 in left eye ; d/c with ciloxin and ophtho f/ u. Dr Hansen called back., discussed plan with and he agrees. pt to f/u tomorrow. Disposition Counseled Patient/Family Regarding: Studies Performed, Diagnosis, Need For Followup, Rx Given - Disposition Referrals: Tyrone Sands [Staff Provider] - Disposition: HOME/ ROUTINE Disposition Time: 11:51 Condition: IMPROVED Additional Instructions: Please follow up with Dr Sands or with your own eye doctor in 1-2 days. Use eye drops as prescribed. Please wear safety goggles when using magazine grinder loader or any other machinery. Return to ER for any worse pain. change in vision or other concerns. Prescriptions: Ofloxacin Ophth 0.3% [Ocuflox Ophth 0.3%] 1 drop OS Q4 #1 bottle Instructions: Corneal Abrasion (DC), Foreign Body in Eye (DC) Forms: [facility] ([place]an), General Discharge Instructions - Clinical Impression Clinical Impression: Corneal abrasion, Corneal foreign body
[2017-11-01] MEDS ORDERED: PROPARACAINE/FLUORESCEIN SOD 100 DROP/5 ML BOTTLE ONE (10:01)
[2017-11-01 12:26] VITALS: BP 141/80; PULSE 88; RESP 18; TEMP 98.3
[2017-11-03 16:45] VITALS: O2SAT 98
== END 2017-11-01 12:26 | disposition home or self-care (01) ==
LOC: C.ER 08:02
DX: T15.02XA Foreign body in cornea, left eye, initial encounter (principal); X58.XXXA Exposure to other specified factors, initial encounter